=== PATIENT | female | born 1945 | race Caucasian/White ===

== ENCOUNTER → 2017-09-21 | Outpatient (CLI) | payer MEDICARE, OTHER | LOC: PLD 14:52 → LAB SHORT 14:52 | DX: D49.2 Neoplasm of unspecified behavior of bone, soft tissue, and skin (principal) | CPT/HCPCS: 88305 ==

== ENCOUNTER → 2017-11-11 | Outpatient (CLI) | payer MEDICARE, OTHER | END | disposition home or self-care (01) | LOC: LAB SHORT 08:47 → PLD 08:47 | DX: L57.0 Actinic keratosis (principal) | CPT/HCPCS: 88305 ==

== ENCOUNTER → 2019-01-12 | Outpatient (CLI) | payer MEDICARE, OTHER | END | disposition home or self-care (01) | LOC: LAB SHORT 11:12 → PLD 11:12 | DX: D48.5 Neoplasm of uncertain behavior of skin (principal) | CPT/HCPCS: 88305 ==

== ENCOUNTER → 2019-03-16 | Outpatient (CLI) | payer MEDICARE, OTHER | END | disposition home or self-care (01) | LOC: LAB 08:37 → LAB SHORT 08:37 | DX: N32.89 Other specified disorders of bladder (principal) | CPT/HCPCS: 88108 ==

== ENCOUNTER 2019-08-06 13:48 | Emergency (ER) | payer MEDICARE, OTHER ==
[~2019-08-06] VITALS: Ht 167.6 cm; Wt 60.3 kg
[2019-08-06] MEDS ORDERED: SIMVASTATIN (14:50)
[2019-08-06] MEDS ORDERED: FOLIC ACID (14:50)
[2019-08-06] MEDS ORDERED: METHOTREXATE (14:50)
[2019-08-06] MEDS ORDERED: Protonix40 MG PO (16:31)
[2019-08-06] MEDS ORDERED: Norco 10-325 T1 EACH PO (16:31)
[2019-08-06] MEDS ORDERED: Sucralfate1 GM PO (16:31)
== END 2019-08-06 17:20 | disposition home or self-care (01) ==
LOC: ER 13:48
DX: K29.80 Duodenitis without bleeding (principal); N20.0 Calculus of kidney; E03.9 Hypothyroidism, unspecified; Z79.899 Other long term (current) drug therapy; I31.3 Pericardial effusion (noninflammatory)
CPT/HCPCS: 74022; 74176; 76705; 80053; 83690; 84484; 85025; 85379; 96361; 96374; 99284-25; J1885; J7030

== ENCOUNTER 2019-09-28 09:27 | Day surgery (SDC) | payer MEDICARE, OTHER ==
[~2019-09-28] VITALS: Ht 167.6 cm; Wt 60.8 kg
[~2019-09-28 09:27] MED LIST: FOLIC ACID; METHOTREXATE; Norco 10-325 T1 EACH PO; Protonix40 MG PO; SIMVASTATIN; Sucralfate1 GM PO
== END 2019-09-28 11:18 | disposition home or self-care (01) ==
LOC: ORSCSDS 09:27
PROVIDERS: Internal Medicine Gastroenterology
PROC: 0DB68ZX Excision of Stomach, Via Natural or Artificial Opening Endoscopic, Diagnostic (ICD-10-PCS; principal; 2019-09-28 10:45)
PROC: 0DB58ZX Excision of Esophagus, Via Natural or Artificial Opening Endoscopic, Diagnostic (ICD-10-PCS; principal; 2019-09-28 10:45)
PROC: 0DB98ZX Excision of Duodenum, Via Natural or Artificial Opening Endoscopic, Diagnostic (ICD-10-PCS; principal; 2019-09-28 10:45)
DX: R10.13 Epigastric pain (principal); K29.70 Gastritis, unspecified, without bleeding; D72.89 Other specified disorders of white blood cells; K29.80 Duodenitis without bleeding; K57.30 Diverticulosis of large intestine without perforation or abscess without bleeding; K22.2 Esophageal obstruction; K44.9 Diaphragmatic hernia without obstruction or gangrene; Z79.899 Other long term (current) drug therapy
CPT/HCPCS: 88305; 88342; J2704; J7120

== ENCOUNTER → 2020-04-26 | Outpatient (CLI) | payer MEDICARE, OTHER | END | disposition home or self-care (01) | LOC: LAB EV 16:30 → LAB SHORT 16:30 | DX: R30.9 Painful micturition, unspecified (principal) | CPT/HCPCS: 87086 ==

== ENCOUNTER → 2020-07-16 | Outpatient (CLI) | payer MEDICARE, OTHER ==
[2020-07-16 16:27] LABS: BASOPHILS ABSOLUTE AUTO 0.05 K/mm3 (0.00-0.23); BASOPHILS PERCENT AUTO 0 % (0-2); EOSINOPHILS ABSOLUTE AUTO 0.06 K/mm3 (0.00-0.68); EOSINOPHILS PERCENT AUTO 1 % (0-6); Hematocrit 37.8 % (33.0-51.0); Hemoglobin 12.3 g/dL (11.5-16.0); IMMATURE GRAN ABSOLUTE AUTO 0.06 K/mm3 (0.00-0.10); IMMATURE GRAN PERCENT AUTO 1 % (0-1); LYMPHOCYTES PERCENT AUTO 10 % (21-46); MONOCYTES ABSOLUTE AUTO 0.69 K/mm3 (0.16-1.47); MONOCYTES PERCENT AUTO 6 % (4-13); Mean Corpuscular HGB 30.8 pg (26.0-34.0); Mean Corpuscular HGB Conc 32.5 g/dL (31.5-36.5); Mean Corpuscular Volume 95 fL (80-100); Mean Platelet Volume 10.6 fL (9.1-12.4); NEUTROPHILS ABSOLUTE AUTO 9.18 K/mm3 (1.96-9.15); NEUTROPHILS PERCENT AUTO 83 % (41-73); Platelet Count 303 K/mm3 (150-400); RDW Coefficient Variation 14.7 % (11.7-14.2); RDW Standard Deviation 50.1 fL (35.1-46.3); Red Blood Cell Count 3.99 M/mm3 (3.80-5.20); White Blood Cell Count 11.14 K/mm3 (4.00-11.30)
[2020-07-16 16:31] LABS: Bun/Creatinine Ratio 19.9 (12.0-20.0); Calcium, Blood 9.7 mg/dL (8.5-10.1); Creatinine, Blood 1.36 mg/dL (0.40-1.00); Potassium, Blood 4.6 mmol/L (3.5-5.5)
== END | disposition home or self-care (01) ==
LOC: LAB SHORT 16:20 → LAB EV 16:20
PROVIDERS: Family Medicine
DX: R42 Dizziness and giddiness (principal)
CPT/HCPCS: 80048; 84484; 85025

== ENCOUNTER → 2020-09-10 | Outpatient (CLI) | payer MEDICARE, OTHER ==
[~2020-09-10] MED LIST changes: +CEFP200 PO; +CEPH500 PO; +FAMO20 PO; +FLUT.05NI; +PARO10 PO
== END | disposition home or self-care (01) ==
LOC: LAB SHORT 11:56 → PLD 11:56
DX: D48.5 Neoplasm of uncertain behavior of skin (principal)
CPT/HCPCS: 88305

== ENCOUNTER → 2021-01-23 | Outpatient (CLI) | payer MEDICARE, OTHER | END | disposition home or self-care (01) | LOC: LAB SHORT 12:10 → LAB 12:10 | DX: N39.0 Urinary tract infection, site not specified (principal) | CPT/HCPCS: 87086 ==

== ENCOUNTER 2021-01-31 06:01 | Emergency (ER) | payer MEDICARE, OTHER ==
[~2021-01-31] VITALS: Ht 165.1 cm; Wt 59.0 kg
[~2021-01-31 06:01] MED LIST changes: -CEFP200 PO; -CEPH500 PO; -FAMO20 PO; -FLUT.05NI; -PARO10 PO
[2021-01-31] MEDS ORDERED: CEPH500 PO (07:21)
== END 2021-01-31 07:52 | disposition home or self-care (01) ==
LOC: ER 06:01
DX: S92.511A Displaced fracture of proximal phalanx of right lesser toe(s), initial encounter for closed fracture (principal); S40.011A Contusion of right shoulder, initial encounter; E03.9 Hypothyroidism, unspecified; X58.XXXA Exposure to other specified factors, initial encounter
CPT/HCPCS: 73030; 73060; 73630; 99283-25

== ENCOUNTER 2021-02-16 13:55 | Emergency (ER) | payer MEDICARE, OTHER ==
[~2021-02-16] VITALS: Ht 165.1 cm; Wt 54.4 kg
[~2021-02-16 13:55] MED LIST changes: +CEPH500 PO
[2021-02-16 14:27] LABS: Hemoglobin 9.9 g/dL (11.5-16.0); Mean Corpuscular HGB 28.1 pg (26.0-34.0); Mean Corpuscular HGB Conc 31.9 g/dL (31.5-36.5); Mean Corpuscular Volume 88 fL (80-100); Mean Platelet Volume 10.1 fL (9.1-12.4); Platelet Count 356 K/mm3 (150-400); RDW Coefficient Variation 15.6 % (11.7-14.2); Red Blood Cell Count 3.52 M/mm3 (3.80-5.20); White Blood Cell Count 17.65 K/mm3 (4.00-11.30)
[2021-02-16 14:43] LABS: Albumin, Blood 2.7 g/dL (3.4-5.0); Albumin/Globulin Ratio 0.5 (0.8-1.8); Bilirubin, Total 0.7 mg/dL (0.1-1.0); Bun/Creatinine Ratio 20.1 (12.0-20.0); Calcium, Blood 9.2 mg/dL (8.5-10.1); Creatinine, Blood 2.24 mg/dL (0.40-1.00); Globulin, Blood 5.1 g/dL (2.2-4.0); Potassium, Blood 4.1 mmol/L (3.5-5.5); Total Protein, Blood 7.8 g/dL (6.4-8.2)
[2021-02-16 14:51] LABS: BAND PERCENT MAN 17 % (0-8); BASOPHILS PERCENT MAN 0 % (0-2); EOSINOPHILS PERCENT MAN 0 % (0-6); LYMPHOCYTES ABSOLUTE MAN 0.52 K/mm3 (0.84-5.20); LYMPHOCYTES PERCENT MAN 3 % (21-46); MONOCYTES ABSOLUTE MAN 0.35 K/mm3 (0.16-1.47); MONOCYTES PERCENT MAN 2 % (4-13); NEUTROPHILS ABSOLUTE MAN 16.76 K/mm3 (1.96-9.15); SEG NEUTROPHILS PERCENT MAN 78 % (41-73); TOTAL CELLS COUNTED 100
[2021-02-16] MEDS ORDERED: FAMO20 PO (15:24)
[2021-02-16 16:13] LABS: Source, Urine Clean Catch
[2021-02-16 16:19] LABS: Appearance, Urine Cloudy (Clear); Bilirubin, Urine Neg (Neg); Blood, Urine 5+ (Neg); Color, Urine Amber (P-Yellow); Glucose Qualitative, Urine Neg (Neg); Ketones, Urine Neg (Neg); Leukocyte Esterase, Urine 3+ (Neg); Nitrite, Urine Pos (Neg); Protein, Urine 3+ (Neg); Urobilinogen, Urine NORM (Normal)
[2021-02-16 16:28] LABS: Red Blood Cells, Urine TNTC /hpf (0-2); White Blood Cells, Urine TNTC /hpf (0-5)
[2021-02-16 16:30] LABS: Bacteria Many /hpf; Squamous Epithelial Cells Few /hpf (Few)
[2021-02-16 20:30] LABS: SARS-Cov-2 (COVID-19) PCR, MMC NEGATIVE (NEGATIVE)
== END 2021-02-16 22:20 | disposition short-term general hospital (02) ==
LOC: ER 13:55
PROVIDERS: Emergency Medicine; Physician Assistant
DX: N13.2 Hydronephrosis with renal and ureteral calculous obstruction (principal); N28.1 Cyst of kidney, acquired; Z20.822 Contact with and (suspected) exposure to COVID-19
CPT/HCPCS: 36415; 51798; 71045; 74176; 76770; 80053; 81001; 83605; 85025; 87040; 87077; 87086; 87186; 96365; 96367; 99285-25; A9270; J0696; J2185; J2405; J7030; P9612; U0004

== ENCOUNTER 2021-02-21 17:35 | Emergency (ER) | payer MEDICARE, OTHER ==
[~2021-02-21] VITALS: Ht 165.1 cm; Wt 54.4 kg
[~2021-02-21 17:35] MED LIST changes: +FAMO20 PO
[2021-02-21 18:17] LABS: BASOPHILS ABSOLUTE AUTO 0.02 K/mm3 (0.00-0.23); BASOPHILS PERCENT AUTO 0 % (0-2); EOSINOPHILS ABSOLUTE AUTO 0.35 K/mm3 (0.00-0.68); EOSINOPHILS PERCENT AUTO 3 % (0-6); Hematocrit 24.1 % (33.0-51.0); Hemoglobin 7.9 g/dL (11.5-16.0); IMMATURE GRAN ABSOLUTE AUTO 0.19 K/mm3 (0.00-0.10); IMMATURE GRAN PERCENT AUTO 1 % (0-1); LYMPHOCYTES ABSOLUTE AUTO 1.36 K/mm3 (0.84-5.20); LYMPHOCYTES PERCENT AUTO 10 % (21-46); MONOCYTES ABSOLUTE AUTO 1.55 K/mm3 (0.16-1.47); MONOCYTES PERCENT AUTO 11 % (4-13); Mean Corpuscular HGB Conc 32.8 g/dL (31.5-36.5); Mean Corpuscular Volume 86 fL (80-100); Mean Platelet Volume 11.7 fL (9.1-12.4); NEUTROPHILS ABSOLUTE AUTO 10.23 K/mm3 (1.96-9.15); NEUTROPHILS PERCENT AUTO 75 % (41-73); Platelet Count 291 K/mm3 (150-400); RDW Coefficient Variation 16.7 % (11.7-14.2); RDW Standard Deviation 51.5 fL (35.1-46.3); Red Blood Cell Count 2.82 M/mm3 (3.80-5.20)
[2021-02-21 18:59] LABS: International Normalized Ratio 1.07; Prothrombin Time Results 11.5 Sec (9.7-11.5)
[2021-02-21 19:23] LABS: Troponin I <0.015 ng/mL (0.000-0.040)
[2021-02-21 19:31] LABS: Alanine Aminotransfer (ALT/SGP 17 U/L (12-78); Albumin, Blood 1.7 g/dL (3.4-5.0); Albumin/Globulin Ratio 0.4 (0.8-1.8); Alk Phos 83 U/L (50-136); Anion Gap 9 mmol/L (6-16); Aspartate Aminotrans (AST/SGOT 19 U/L (12-37); Bilirubin, Total 0.4 mg/dL (0.1-1.0); Blood Urea Nitrogen 25 mg/dL (8-24); Bun/Creatinine Ratio 11.9 (12.0-20.0); CO2, Blood 21 mmol/L (21-32); Calcium, Blood 8.4 mg/dL (8.5-10.1); Chloride, Blood 112 mmol/L (98-108); Globulin, Blood 4.1 g/dL (2.2-4.0); Glomerular Filtration Rate 24 (60-); Glucose, Blood 116 mg/dL (70-99); Potassium, Blood 3.9 mmol/L (3.5-5.5); Sodium, Blood 142 mmol/L (136-145); Total Protein, Blood 5.8 g/dL (6.4-8.2)
[2021-02-21 19:46] LABS: Source, Urine Catheter
[2021-02-21 19:56] LABS: Appearance, Urine Hazy (Clear); Bilirubin, Urine Neg (Neg); Blood, Urine 5+ (Neg); Color, Urine Yellow (P-Yellow); Glucose Qualitative, Urine Neg (Neg); Ketones, Urine Neg (Neg); Leukocyte Esterase, Urine 3+ (Neg); Nitrite, Urine Neg (Neg); Protein, Urine 3+ (Neg); Urobilinogen, Urine NORM (Normal)
[2021-02-21 20:10] LABS: Bacteria Few /hpf; Red Blood Cells, Urine TNTC /hpf (0-2); Squamous Epithelial Cells Not Seen /hpf (Few); White Blood Cells, Urine TNTC /hpf (0-5)
== END 2021-02-21 20:50 | disposition home or self-care (01) ==
LOC: ER 17:35
PROVIDERS: Physician Assistant
DX: R53.1 Weakness (principal); R30.0 Dysuria; E03.9 Hypothyroidism, unspecified; E78.00 Pure hypercholesterolemia, unspecified; Z79.899 Other long term (current) drug therapy
CPT/HCPCS: 36415; 80053; 81001; 84484; 85025; 85610; 87086; 93005; 93010; 99284-25; A9270; J7030

== ENCOUNTER 2021-03-05 09:54 | Emergency (ER) | payer MEDICARE, OTHER ==
[~2021-03-05] VITALS: Ht 165.1 cm; Wt 54.4 kg
[2021-03-05 10:25] LABS: BASOPHILS PERCENT AUTO 1 % (0-2); EOSINOPHILS ABSOLUTE AUTO 0.12 K/mm3 (0.00-0.68); EOSINOPHILS PERCENT AUTO 1 % (0-6); Hematocrit 30.2 % (33.0-51.0); Hemoglobin 9.2 g/dL (11.5-16.0); IMMATURE GRAN ABSOLUTE AUTO 0.32 K/mm3 (0.00-0.10); IMMATURE GRAN PERCENT AUTO 3 % (0-1); LYMPHOCYTES ABSOLUTE AUTO 2.42 K/mm3 (0.84-5.20); LYMPHOCYTES PERCENT AUTO 19 % (21-46); MONOCYTES ABSOLUTE AUTO 1.25 K/mm3 (0.16-1.47); MONOCYTES PERCENT AUTO 10 % (4-13); Mean Corpuscular HGB 27.5 pg (26.0-34.0); Mean Corpuscular HGB Conc 30.5 g/dL (31.5-36.5); Mean Corpuscular Volume 90 fL (80-100); Mean Platelet Volume 9.7 fL (9.1-12.4); NEUTROPHILS ABSOLUTE AUTO 8.46 K/mm3 (1.96-9.15); NEUTROPHILS PERCENT AUTO 67 % (41-73); Platelet Count 714 K/mm3 (150-400); RDW Coefficient Variation 16.4 % (11.7-14.2); RDW Standard Deviation 54.5 fL (35.1-46.3); Red Blood Cell Count 3.35 M/mm3 (3.80-5.20); White Blood Cell Count 12.67 K/mm3 (4.00-11.30)
[2021-03-05 10:42] LABS: Alanine Aminotransfer (ALT/SGP 37 U/L (12-78); Albumin, Blood 2.9 g/dL (3.4-5.0); Albumin/Globulin Ratio 0.5 (0.8-1.8); Alk Phos 99 U/L (50-136); Anion Gap 8 mmol/L (6-16); Aspartate Aminotrans (AST/SGOT 34 U/L (12-37); Bilirubin, Total 0.4 mg/dL (0.1-1.0); Blood Urea Nitrogen 47 mg/dL (8-24); Bun/Creatinine Ratio 22.3 (12.0-20.0); CO2, Blood 22 mmol/L (21-32); Calcium, Blood 9.9 mg/dL (8.5-10.1); Chloride, Blood 106 mmol/L (98-108); Creatinine, Blood 2.11 mg/dL (0.40-1.00); Globulin, Blood 6.4 g/dL (2.2-4.0); Glomerular Filtration Rate 24 (60-); Glucose, Blood 121 mg/dL (70-99); Potassium, Blood 4.6 mmol/L (3.5-5.5); Sodium, Blood 136 mmol/L (136-145); Total Protein, Blood 9.3 g/dL (6.4-8.2); Troponin I <0.015 ng/mL (0.000-0.040)
[2021-03-05 10:53] LABS: Source, Urine Clean Catch
[2021-03-05 11:28] LABS: Appearance, Urine Hazy (Clear); Bilirubin, Urine Neg (Neg); Blood, Urine 5+ (Neg); Color, Urine Yellow (P-Yellow); Glucose Qualitative, Urine Neg (Neg); Ketones, Urine Neg (Neg); Leukocyte Esterase, Urine 3+ (Neg); Nitrite, Urine Neg (Neg); Protein, Urine 3+ (Neg); Urobilinogen, Urine NORM (Normal)
[2021-03-05] MEDS ORDERED: PARO10 PO (12:45)
[2021-03-05] MEDS ORDERED: FLUT.05NI (12:46)
[2021-03-05 12:59] LABS: Bacteria Many /hpf; Red Blood Cells, Urine TNTC /hpf (0-2); Squamous Epithelial Cells Few /hpf (Few); White Blood Cells, Urine TNTC /hpf (0-5)
[2021-03-05] MEDS ORDERED: CEFP200 PO (13:15)
== END 2021-03-05 13:35 | disposition home or self-care (01) ==
LOC: ER 09:54
PROVIDERS: Emergency Medicine; Physician Assistant
DX: N39.0 Urinary tract infection, site not specified (principal); R94.4 Abnormal results of kidney function studies; Z79.899 Other long term (current) drug therapy
CPT/HCPCS: 36415; 71046; 80053; 81001; 82607; 82746; 83880; 84484; 85025; 87086; 93005; 93010; 99284-25

== ENCOUNTER → 2021-03-11 | Outpatient (CLI) | payer MEDICARE, OTHER ==
[~2021-03-11] MED LIST changes: +CEFP200 PO; +FLUT.05NI; +PARO10 PO
== END | disposition home or self-care (01) ==
LOC: LAB 15:21 → LAB SHORT 15:21
DX: D22.62 Melanocytic nevi of left upper limb, including shoulder (principal)
CPT/HCPCS: 88305

== ENCOUNTER → 2021-05-08 | Outpatient (CLI) | payer MEDICARE, OTHER ==
[2021-05-09 14:54] LABS: Adenovirus F 40/41 Not Detected (NOT DETECT); Astrovirus Not Detected (NOT DETECT); Campylobacter Sp Not Detected (NOT DETECT); Cryptosporidium Not Detected (NOT DETECT); Cyclospora Cayetanensis Not Detected (NOT DETECT); E. Coli O157 Not Detected (NOT DETECT); Entamoeba Histolytica Not Detected (NOT DETECT); Enteroaggregative E. coli-EAEC Not Detected (NOT DETECT); Enteropathogenic E. coli-EPEC Not Detected (NOT DETECT); Enterotoxigenic E. coli-ETEC Not Detected (NOT DETECT); Giardia Lamblia Not Detected (NOT DETECT); Norovirus GI/GII Not Detected (NOT DETECT); Plesiomonas Shigelloides Not Detected (NOT DETECT); Rotavirus A Not Detected (NOT DETECT); Salmonella Sp Not Detected (NOT DETECT); Sapovirus Not Detected (NOT DETECT); Shiga Toxin-prod E. coli-STEC Not Detected (NOT DETECT); Shigella/Enteroin E. coli-EIEC Not Detected (NOT DETECT); Vibrio Cholerae Not Detected (NOT DETECT); Vibrio Sp Not Detected (NOT DETECT); Yersinia Enterocolitica Not Detected (NOT DETECT)
== END | disposition home or self-care (01) ==
LOC: LAB SHORT 19:00 → LAB 19:00
PROVIDERS: Internal Medicine Gastroenterology
DX: R19.7 Diarrhea, unspecified (principal)
CPT/HCPCS: 0097U; 87324

== ENCOUNTER → 2021-05-09 | Outpatient (CLI) | payer MEDICARE, OTHER | END | disposition home or self-care (01) | LOC: LAB 01:30 → LAB SHORT 01:30 | DX: R19.7 Diarrhea, unspecified (principal) | CPT/HCPCS: 83993 ==

== ENCOUNTER 2021-09-17 09:48 | Day surgery (SDC) | payer MEDICARE, OTHER ==
[~2021-09-17] VITALS: Ht 165.1 cm; Wt 50.1 kg
[~2021-09-17 09:48] MED LIST changes: +FOLI1 PO; +METTREX2.5 PO
--- NOTE | 2021-09-17 10:34 | NUR ---
PT AMBULATES TO [facility] GAIT. History, Chart, Medications and Allergies reviewed before start of procedure. Lungs clear T/O to Auscultation. Patient states colon prep results clear. Patient States Post-Procedure ride home has been arranged.
--- NOTE | 2021-09-17 12:06 | NUR ---
09/17/21 1206 [address] [place] History, Chart, Medications and Allergies reviewed before start of procedure. Patient confirms NPO status and agrees with scheduled surgery. 3-LEAD EKG REVIEWED WITH PHYSICIAN PRIOR TO START OF PROCEDURE. MONITOR INTACT WITH CONTINUOUS PULSE OXIMETRY AND INTERMITTENT BP. PATIENT DETERMINED TO BE ASA APPROPRIATE FOR PROPOFOL SEDATION PRIOR TO START OF PROCEDURE BY DR. EDUARDO. O2 VIA POM.
--- NOTE | 2021-09-17 13:08 | NUR ---
PT ALERT AND ORIENTED, ABLE TO REPOSITION SELF IN BED. SPEAKING WITH DOCTOR AT BEDSIDE ABOUT HOW PROCEDURE WENT.
--- NOTE | 2021-09-17 13:12 | NUR ---
PT TOLERATING PO FLUIDS, SITTING UP IN BED AND JOKING WITH STAFF AT BEDSIDE.
--- NOTE | 2021-09-17 13:30 | NUR ---
Patient up to Ambulate independently. Gait steady. Discharge instructions reviewed with patient. Patient verbalizes understanding. Copy given to patient to take home. Patient States Post-Procedure ride home has been arranged. Discharged via wheelchair to private car for ride home. ALL BELONGINGS RETURNED TO PATIENT.
== END 2021-09-17 22:38 | disposition home or self-care (01) ==
LOC: ORSCMMR 09:48 → ORSCSDS 11:15 → ORD 11:15 → ORSCMMR 22:38
PROVIDERS: Student in an Organized Health Care Education/Training Program
PROC: 0DBE8ZX Excision of Large Intestine, Via Natural or Artificial Opening Endoscopic, Diagnostic (ICD-10-PCS; principal; 2021-09-17 11:15)
PROC: 0DB48ZX Excision of Esophagogastric Junction, Via Natural or Artificial Opening Endoscopic, Diagnostic (ICD-10-PCS; principal; 2021-09-17 11:15)
PROC: 0DB78ZX Excision of Stomach, Pylorus, Via Natural or Artificial Opening Endoscopic, Diagnostic (ICD-10-PCS; principal; 2021-09-17 11:15)
DX: R19.7 Diarrhea, unspecified (principal); D50.9 Iron deficiency anemia, unspecified; K52.9 Noninfective gastroenteritis and colitis, unspecified; R63.4 Abnormal weight loss; N18.9 Chronic kidney disease, unspecified; K44.9 Diaphragmatic hernia without obstruction or gangrene; K29.70 Gastritis, unspecified, without bleeding; K57.30 Diverticulosis of large intestine without perforation or abscess without bleeding; K64.8 Other hemorrhoids; E78.5 Hyperlipidemia, unspecified; Z79.899 Other long term (current) drug therapy
CPT/HCPCS: 88305; 88341; 88342; J2704; J7120

== ENCOUNTER 2021-09-21 05:55 | Day surgery (SDC) | payer MEDICARE, OTHER | END 2021-09-21 09:29 | disposition home or self-care (01) | LOC: ATC 05:55 | DX: N18.32 Chronic kidney disease, stage 3b (principal); D63.1 Anemia in chronic kidney disease | CPT/HCPCS: J2916 ==

== ENCOUNTER 2021-09-28 04:03 | Day surgery (SDC) | payer MEDICARE, OTHER ==
[2021-09-28] MEDS ORDERED: LOSARTAN POTASS25 M2 PO (08:32)
== END 2021-09-28 09:45 | disposition home or self-care (01) ==
LOC: ATC 04:03
DX: N18.9 Chronic kidney disease, unspecified (principal); D63.1 Anemia in chronic kidney disease
CPT/HCPCS: J2916

== ENCOUNTER 2021-10-05 07:55 | Day surgery (SDC) | payer MEDICARE, OTHER ==
[~2021-10-05 07:55] MED LIST changes: +LOSARTAN POTASS25 M2 PO
== END 2021-10-05 09:38 | disposition home or self-care (01) ==
LOC: ATC 07:55
DX: N18.9 Chronic kidney disease, unspecified (principal); D63.1 Anemia in chronic kidney disease
CPT/HCPCS: J2916

== ENCOUNTER 2021-10-12 03:53 | Day surgery (SDC) | payer MEDICARE, OTHER | END 2021-10-12 09:25 | disposition home or self-care (01) | LOC: ATC 03:53 | DX: N18.9 Chronic kidney disease, unspecified (principal); D63.1 Anemia in chronic kidney disease | CPT/HCPCS: J2916 ==

== ENCOUNTER → 2022-03-02 | Outpatient (CLI) | payer MEDICARE, OTHER ==
[2022-03-02 10:27] LABS: BASOPHILS ABSOLUTE AUTO 0.01 K/mm3 (0.00-0.23); BASOPHILS PERCENT AUTO 0 % (0-2); EOSINOPHILS ABSOLUTE AUTO 0.07 K/mm3 (0.00-0.68); EOSINOPHILS PERCENT AUTO 2 % (0-6); Hemoglobin 10.2 g/dL (11.5-16.0); IMMATURE GRAN ABSOLUTE AUTO 0.02 K/mm3 (0.00-0.10); IMMATURE GRAN PERCENT AUTO 1 % (0-1); LYMPHOCYTES ABSOLUTE AUTO 1.25 K/mm3 (0.84-5.20); LYMPHOCYTES PERCENT AUTO 33 % (21-46); MONOCYTES PERCENT AUTO 13 % (4-13); Mean Corpuscular HGB 32.5 pg (26.0-34.0); Mean Corpuscular HGB Conc 31.9 g/dL (31.5-36.5); Mean Corpuscular Volume 102 fL (80-100); NEUTROPHILS ABSOLUTE AUTO 1.96 K/mm3 (1.96-9.15); NEUTROPHILS PERCENT AUTO 52 % (41-73); Platelet Count 186 K/mm3 (150-400); RDW Standard Deviation 58.7 fL (35.1-46.3); Red Blood Cell Count 3.14 M/mm3 (3.80-5.20); White Blood Cell Count 3.81 K/mm3 (4.00-11.30)
[2022-03-02 10:40] LABS: Albumin, Blood 3.4 g/dL (3.4-5.0); Albumin/Globulin Ratio 0.9 (0.8-1.8); Bilirubin, Total 0.2 mg/dL (0.1-1.0); Bun/Creatinine Ratio 15.1 (12.0-20.0); Calcium, Blood 8.7 mg/dL (8.5-10.1); Creatinine, Blood 2.18 mg/dL (0.40-1.00); Globulin, Blood 3.9 g/dL (2.2-4.0); Potassium, Blood 4.5 mmol/L (3.5-5.5); Total Protein, Blood 7.3 g/dL (6.4-8.2)
[2022-03-02 13:30] LABS: Bacteria Few /hpf; Squamous Epithelial Cells Rare /hpf (Few); White Blood Cells, Urine 25-50 /hpf (0-5)
[2022-03-02 13:31] LABS: Transitional Epithelial Cells Few /hpf (0-Rare); Yeast/Fungi Urine Mod /hpf
== END ==
LOC: LAB SHORT 10:24
PROVIDERS: General Practice
DX: N39.0 Urinary tract infection, site not specified (principal); D84.9 Immunodeficiency, unspecified
CPT/HCPCS: 80053; 81015; 85025; 87086

== ENCOUNTER → 2022-03-04 | Outpatient (CLI) | payer MEDICARE, OTHER | END | disposition home or self-care (01) | LOC: LAB 13:01 → LAB SHORT 13:01 | DX: R35.81 Nocturnal polyuria (principal) | CPT/HCPCS: 87086 ==

== ENCOUNTER 2022-03-07 08:55 | Emergency (ER) | payer MEDICARE, OTHER ==
[~2022-03-07] VITALS: Ht 165.1 cm; Wt 53.5 kg
== END 2022-03-07 11:00 | disposition home or self-care (01) ==
LOC: ER 08:55
DX: R07.89 Other chest pain (principal); N18.9 Chronic kidney disease, unspecified; Z79.899 Other long term (current) drug therapy
CPT/HCPCS: 71101

== ENCOUNTER → 2023-08-10 | Outpatient (CLI) | payer MEDICARE, OTHER ==
[2023-08-10 17:25] LABS: Source, Urine Clean Catch
[2023-08-10 17:38] LABS: Appearance, Urine Cloudy (Clear); Bilirubin, Urine Neg (Neg); Blood, Urine 5+ (Neg); Color, Urine Yellow (P-Yellow); Glucose Qualitative, Urine Neg (Neg); Ketones, Urine Neg (Neg); Leukocyte Esterase, Urine 3+ (Neg); Nitrite, Urine Neg (Neg); Protein, Urine 3+ (Neg); Urobilinogen, Urine NORM (Normal)
[2023-08-10 18:11] LABS: Bacteria Many /hpf; Red Blood Cells, Urine 25-50 /hpf (0-2); Squamous Epithelial Cells Few /hpf (Few); White Blood Cells, Urine TNTC /hpf (0-5)
== END ==
LOC: LAB 16:22 → LAB SHORT 16:22
PROVIDERS: Hospitalist
DX: N18.4 Chronic kidney disease, stage 4 (severe) (principal)
CPT/HCPCS: 81001; 87077; 87086; 87186

== ENCOUNTER 2024-04-04 21:11 | Inpatient (IN) | payer OTHER, MEDICARE ==
[~2024-04-04] VITALS: Ht 165.1 cm; Wt 59.3 kg
[~2024-04-04 21:11] MED LIST changes: +ONDA4ODT MM
[2024-04-04 22:17] LABS: Hematocrit 33.1 % (33.0-51.0); Hemoglobin 10.5 g/dL (11.5-16.0); Mean Corpuscular HGB 27.8 pg (26.0-34.0); Mean Corpuscular HGB Conc 31.7 g/dL (31.5-36.5); Mean Corpuscular Volume 88 fL (80-100); Platelet Count 355 K/mm3 (150-400); RDW Coefficient Variation 17.4 % (11.7-14.2); RDW Standard Deviation 56.3 fL (35.1-46.3); Red Blood Cell Count 3.78 M/mm3 (3.80-5.20); White Blood Cell Count 13.64 K/mm3 (4.00-11.30)
[2024-04-04 22:39] LABS: Albumin, Blood 2.8 g/dL (3.4-5.0); Albumin/Globulin Ratio 0.6 (0.8-1.8); Bilirubin, Total 0.5 mg/dL (0.1-1.0); Calcium, Blood 8.9 mg/dL (8.5-10.1); Creatinine, Blood 2.38 mg/dL (0.40-1.00); Globulin, Blood 4.6 g/dL (2.2-4.0); Potassium, Blood 4.5 mmol/L (3.5-5.5); Total Protein, Blood 7.4 g/dL (6.4-8.2)
[2024-04-04 22:46] LABS: BAND PERCENT MAN 18 % (0-8); BASOPHILS PERCENT MAN 0 % (0-2); EOSINOPHILS PERCENT MAN 0 % (0-6); LYMPHOCYTES ABSOLUTE MAN 1.77 K/mm3 (0.84-5.20); LYMPHOCYTES PERCENT MAN 13 % (21-46); MONOCYTES ABSOLUTE MAN 0.95 K/mm3 (0.16-1.47); MONOCYTES PERCENT MAN 7 % (4-13); NEUTROPHILS ABSOLUTE MAN 10.91 K/mm3 (1.96-9.15); SEG NEUTROPHILS PERCENT MAN 62 % (41-73); TOTAL CELLS COUNTED 100
[2024-04-04 23:56] LABS: Source, Urine Clean Catch
[2024-04-04 23:59] LABS: Bilirubin, Urine Neg (Neg); Blood, Urine 5+ (Neg); Glucose Qualitative, Urine Neg (Neg); Ketones, Urine Neg (Neg); Leukocyte Esterase, Urine 3+ (Neg); Nitrite, Urine Neg (Neg); Protein, Urine 3+ (Neg); Urobilinogen, Urine NORM (Normal)
[2024-04-05 00:10] LABS: Appearance, Urine Cloudy (Clear); Color, Urine Yellow (P-Yellow)
[2024-04-05 00:11] LABS: Bacteria Many /hpf; Red Blood Cells, Urine TNTC /hpf (0-2); Squamous Epithelial Cells Not Seen /hpf (Few); White Blood Cells, Urine TNTC /hpf (0-5)
[2024-04-05] MEDS ORDERED: TraMADol HCl 50 MG Tab PO ONE (02:10)
[2024-04-05] MEDS ORDERED: CefTRIAXone Sodium 1,000 MG in NS 50 ML IV ONE (02:10)
[2024-04-05] MEDS ORDERED: NS 1,000 ML IV SCH ×3 (02:10→17:35)
[2024-04-05] MEDS ORDERED: Dexamethasone Sod Phos 10 MG/ML 1ML VIAL PO ONE (02:15)
[2024-04-05] MEDS ORDERED: Ipratropium/Albuterol SulF 2.5-0.5MG/3 ML Amp INH ONE (02:15)
[2024-04-05] MEDS ORDERED: Acetaminophen 325 MG TABLET PO PRN (03:05)
[2024-04-05] MEDS ORDERED: Ipratropium/Albuterol SulF 2.5-0.5MG/3 ML Amp INH PRN (03:05)
[2024-04-05] MEDS ORDERED: Ondansetron HCl 2 MG / ML 2ML Vial IV PRN (03:05)
[2024-04-05] MEDS ORDERED: Remdesivir (EUA) 200 MG in NS 250 ML IV ONE (03:15)
[2024-04-05 06:15] LABS: SARS-Cov-2 (COVID-19) PCR, MMC POSITIVE (NEGATIVE)
[2024-04-05 06:16] LABS: Albumin, Blood 2.4 g/dL (3.4-5.0); Albumin/Globulin Ratio 0.6 (0.8-1.8); Bilirubin, Total 0.3 mg/dL (0.1-1.0); Bun/Creatinine Ratio 16.9 (12.0-20.0); Calcium, Blood 8.3 mg/dL (8.5-10.1); Creatinine, Blood 2.07 mg/dL (0.40-1.00); Globulin, Blood 4.3 g/dL (2.2-4.0); Potassium, Blood 3.9 mmol/L (3.5-5.5); Total Protein, Blood 6.7 g/dL (6.4-8.2)
[2024-04-05 06:21] LABS: Percent Saturation 5.9 % (15.0-50.0); Thyroid Stimulating Hormone 2.04 uIU/mL (0.360-4.800)
[2024-04-05] MEDS ORDERED: Lidocaine 2% Viscous Soln 20 ML,Nystatin 100,000 Unit/ml Susp 20 ML,Mag Hydrox/Al Hydro... MT PRN (09:00)
[2024-04-05] MEDS ORDERED: Lactobacil 2-S.Thermo-Bifido 1 1 Cap PO SCH (09:00)
[2024-04-05] MEDS ORDERED: Heparin Sodium,Porcine 5,000 UNIT/0.5 ML SDV SC SCH (09:00)
[2024-04-05 15:24] VITALS: BP 157/105
[2024-04-05] MEDS ORDERED: HYDROcodone 5-APAP 325 TAB PO PRN (16:40)
[2024-04-05] MEDS ORDERED: HYDROmorphone HCl/Pf 1MG SYR IV PRN (16:40)
--- NOTE | 2024-04-05 18:41 | NUR ---
ADMISSION AND SHIFT SUMMARY PATIENT ALERT AND INTERACTIVE. PATIENT ABLE TO AMBULATE FROM OATES TO BED WITH STAND BY ASSIST. PATIENT STATES THAT SHE IS WEAK FROM BEING SICK AND HAVING THIS SORE THROAT. PATIENT RECENTLY RETURNED FROM AN [facility]. PATIENT REPORTS BEING INCONTINTENT WITH NO CONTROL SINCE BLADDER CANCER ISSUES. PUREWICK CURRENTLY IN PLACE. PATIENT CONTINUES TO BE ON ROOM AIR WITH MOIST PRODUCTIVE COUGH OF CLEAR SECRETIONS. EDUCATION PROVIDED ON THE IMPORTANCE OF COUGHING AND DEEP BREATHING. PATIENT ALSO EMOTIONAL ABOUT BEING SICK. PATIENT MAKING REFERENCES TO HER THAT HAD A FEW YEARS AGO AND BECAME TEARFUL. LARGE BOLBUS BLISTER LIKE LEISON NOTED ON UPPER PALLET. PATIENT STATES THAT SHE HAS AREAS AROUND LIPS AND GUMS SLOUGHING TOO. PATIENT STATES PAIN IS 9/10. PATIENT ABLE TO SWALLOW PILLS WITH ROOM TEMPERATURE LIQUIDS. COLD OR HOT LIQUIDS MAKES PAIN WORSE. PATIENT MEDICATED WITH PAIN PER MAR WITH MINIMAL RELIEF.
[2024-04-05 19:55] VITALS: BP 118/59
[2024-04-06] MEDS ORDERED: CefTRIAXone Sodium 1,000 MG in NS 100 ML IV SCH (03:00)
[2024-04-06 03:22] VITALS: BP 151/78
[2024-04-06 04:57] LABS: BASOPHILS ABSOLUTE AUTO 0.03 K/mm3 (0.00-0.23); BASOPHILS PERCENT AUTO 0 % (0-2); EOSINOPHILS PERCENT AUTO 0 % (0-6); Hematocrit 27.7 % (33.0-51.0); Hemoglobin 8.6 g/dL (11.5-16.0); IMMATURE GRAN ABSOLUTE AUTO 0.14 K/mm3 (0.00-0.10); IMMATURE GRAN PERCENT AUTO 1 % (0-1); LYMPHOCYTES ABSOLUTE AUTO 0.88 K/mm3 (0.84-5.20); LYMPHOCYTES PERCENT AUTO 6 % (21-46); MONOCYTES ABSOLUTE AUTO 0.96 K/mm3 (0.16-1.47); MONOCYTES PERCENT AUTO 6 % (4-13); Mean Corpuscular Volume 87 fL (80-100); Mean Platelet Volume 10.3 fL (9.1-12.4); NEUTROPHILS ABSOLUTE AUTO 13.64 K/mm3 (1.96-9.15); NEUTROPHILS PERCENT AUTO 87 % (41-73); Platelet Count 314 K/mm3 (150-400); RDW Coefficient Variation 17.5 % (11.7-14.2); RDW Standard Deviation 56.2 fL (35.1-46.3); Red Blood Cell Count 3.18 M/mm3 (3.80-5.20); White Blood Cell Count 15.65 K/mm3 (4.00-11.30)
[2024-04-06 05:53] LABS: Albumin, Blood 2.1 g/dL (3.4-5.0); Albumin/Globulin Ratio 0.5 (0.8-1.8); Bilirubin, Total 0.3 mg/dL (0.1-1.0); Bun/Creatinine Ratio 22.8 (12.0-20.0); Calcium, Blood 8.5 mg/dL (8.5-10.1); Creatinine, Blood 1.58 mg/dL (0.40-1.00); Potassium, Blood 4.7 mmol/L (3.5-5.5); Total Protein, Blood 6.1 g/dL (6.4-8.2)
--- NOTE | 2024-04-06 06:45 | NUR ---
SHIFT SUMMARY PT IS A&OX4, PLEASANT AND APPRECIATIVE OF CARES. VSS ON RA. PT CRYING IN PAIN, 10/10 IN HER MOUTH AND THROAT. MEDICATED WITH 1MG IV DILAUDID, D/T PT SAYING SHE WOULD NOT BE ABLE TO SWALLOW A PILL. PT RESTING IN BETWEEN CARES. NOT ABLE TO TOLERATE FOOD. LIMITS ORAL INTAKE D/T PAIN. WICKING SYSTEM IN PLACE DRAINING CLOUDY YELLOW URINE. NO BM THIS SHIFT. BED IN LOWEST POSITION, CALL LIGHT WITHIN REACH. AEROSOL PRECAUTIONS MAINTAINED FOR COVID.
[2024-04-06 07:39] VITALS: BP 143/68
[2024-04-06] MEDS ORDERED: Azithromycin 500 MG in NS 250 ML IV SCH (09:57)
[2024-04-06] MEDS ORDERED: MethylPREDNISolone Sod Succ 125 MG Vial IV SCH (11:10)
[2024-04-06] MEDS ORDERED: Sod Ferric Gluc Complx/Sucrose 125 MG in NS 100 ML IV SCH (11:15)
[2024-04-06] MEDS ORDERED: Remdesivir (EUA) 100 MG in NS 250 ML IV SCH (12:00)
[2024-04-06 14:29] LABS: BASOPHILS ABSOLUTE AUTO 0.04 K/mm3 (0.00-0.23); BASOPHILS PERCENT AUTO 0 % (0-2); EOSINOPHILS PERCENT AUTO 0 % (0-6); Hematocrit 29.1 % (33.0-51.0); Hemoglobin 9.2 g/dL (11.5-16.0); IMMATURE GRAN PERCENT AUTO 1 % (0-1); LYMPHOCYTES PERCENT AUTO 6 % (21-46); MONOCYTES ABSOLUTE AUTO 0.91 K/mm3 (0.16-1.47); MONOCYTES PERCENT AUTO 5 % (4-13); Mean Corpuscular HGB 27.5 pg (26.0-34.0); Mean Corpuscular HGB Conc 31.6 g/dL (31.5-36.5); Mean Corpuscular Volume 87 fL (80-100); Mean Platelet Volume 10.2 fL (9.1-12.4); NEUTROPHILS PERCENT AUTO 88 % (41-73); Platelet Count 352 K/mm3 (150-400); RDW Coefficient Variation 17.6 % (11.7-14.2); RDW Standard Deviation 56.4 fL (35.1-46.3); Red Blood Cell Count 3.35 M/mm3 (3.80-5.20); White Blood Cell Count 19.45 K/mm3 (4.00-11.30)
[2024-04-06 14:53] LABS: Albumin, Blood 2.3 g/dL (3.4-5.0); Anion Gap 7 mmol/L (3-11); Blood Urea Nitrogen 36 mg/dL (8-24); Bun/Creatinine Ratio 25.9 (12.0-20.0); CO2, Blood 22 mmol/L (21-32); Calcium, Blood 8.4 mg/dL (8.5-10.1); Chloride, Blood 112 mmol/L (98-108); Creatinine, Blood 1.39 mg/dL (0.40-1.00); Glomerular Filtration Rate 38 (60-); Glucose, Blood 134 mg/dL (70-99); Phosphorus, Blood 2.2 mg/dL (2.5-4.9); Potassium, Blood 4.5 mmol/L (3.5-5.5); Sodium, Blood 136 mmol/L (136-145)
[2024-04-06 16:08] VITALS: BP 142/63
[2024-04-06] MEDS ORDERED: Ferrous Sulfate 325 MG Tab PO SCH (17:00)
--- NOTE | 2024-04-06 18:50 | NUR ---
SHIFT SUMMARY PATIENT ALERT AND INTERACTIVE. PATIENT CONTINUES TO BE TEARFUL AT TIMES AND EMOTIONAL. PATIENT CONTINUES TO HAVE THROAT PAIN. PATIENT MEDICATED PER MAR NEEDED FOR PAIN. PATIENT HAVING BETTER PAIN CONTROL WITH 2 NORCO WHEN MEDICATED. PATIENT UP TO BR WITH MINIMAL ASSIST FOR SPONGE BATH. CONTINUE TO USE PUREWICK FOR BLADDER LEAKAGE. FELICE AT BEDSIDE MOST OF THE DAY.
[2024-04-06 20:05] VITALS: BP 178/67
[2024-04-06] MEDS ORDERED: Famotidine 10 MG/ML 2ML Vial IV SCH (21:00)
--- NOTE | 2024-04-07 04:39 | NUR ---
Pt resting quietly intermittently. pt reports seeing "steam" rising across the room. No evidence noted or observed. Will followup. Pt tearful at times. No distress noted.
[2024-04-07 05:01] LABS: BASOPHILS ABSOLUTE AUTO 0.02 K/mm3 (0.00-0.23); BASOPHILS PERCENT AUTO 0 % (0-2); EOSINOPHILS PERCENT AUTO 0 % (0-6); Hematocrit 30.7 % (33.0-51.0); Hemoglobin 9.6 g/dL (11.5-16.0); IMMATURE GRAN ABSOLUTE AUTO 0.34 K/mm3 (0.00-0.10); IMMATURE GRAN PERCENT AUTO 3 % (0-1); LYMPHOCYTES ABSOLUTE AUTO 0.86 K/mm3 (0.84-5.20); LYMPHOCYTES PERCENT AUTO 9 % (21-46); MONOCYTES ABSOLUTE AUTO 0.49 K/mm3 (0.16-1.47); MONOCYTES PERCENT AUTO 5 % (4-13); Mean Corpuscular HGB 27.3 pg (26.0-34.0); Mean Corpuscular HGB Conc 31.3 g/dL (31.5-36.5); Mean Corpuscular Volume 87 fL (80-100); Mean Platelet Volume 10.2 fL (9.1-12.4); NEUTROPHILS ABSOLUTE AUTO 8.42 K/mm3 (1.96-9.15); NEUTROPHILS PERCENT AUTO 83 % (41-73); Platelet Count 358 K/mm3 (150-400); RDW Coefficient Variation 17.8 % (11.7-14.2); RDW Standard Deviation 57.3 fL (35.1-46.3); Red Blood Cell Count 3.52 M/mm3 (3.80-5.20); White Blood Cell Count 10.13 K/mm3 (4.00-11.30)
[2024-04-07 05:24] LABS: Albumin, Blood 2.1 g/dL (3.4-5.0); Albumin/Globulin Ratio 0.5 (0.8-1.8); Bilirubin, Total 0.2 mg/dL (0.1-1.0); Bun/Creatinine Ratio 22.7 (12.0-20.0); Calcium, Blood 7.9 mg/dL (8.5-10.1); Creatinine, Blood 1.41 mg/dL (0.40-1.00); Globulin, Blood 4.3 g/dL (2.2-4.0); Potassium, Blood 4.8 mmol/L (3.5-5.5); Total Protein, Blood 6.4 g/dL (6.4-8.2)
[2024-04-07 05:36] VITALS: BP 142/81
[2024-04-07 07:43] VITALS: BP 151/81
[2024-04-07] MEDS ORDERED: Sodium Bicarb 8.4% Inj 75 MEQ in Sodium Chloride 0.45% 1,000 ML IV SCH (12:15)
[2024-04-07 14:08] VITALS: BP 139/67
--- NOTE | 2024-04-07 19:20 | NUR ---
SHIFT SUMMARY: PT IS A/O X 4, STANDBY/IND IN ROOM. PLEASANT AND COOPERATIVE BUT CAN BE TEARFUL AT TIMES. PT REPORTED CONTINUOUS BIOX KEPT HER UP ALL NIGHT. PER DR. CROUCH OKAY TO DC. UNABLE TO DC ORDER. PT IS NOT WEARING CONTINUOUS BIOX. PT IS NOW ON TELE WITH NSR. PT CONTINUES TO HAVE PAIN TO MOUTH FROM SORES. NORCO 2 TABS EFFECTIVE IN TREATING PAIN. PT UNABLE TO EAT MEALS BUT SHE WAS ABLE TO DRINK A STRAWBERRY MILKSHAKE. REFUSED ENSURES. PT HAD 2 BOUTS OF NAUSEA. ZOFRAN EFFECTIVE IN TREATING NAUSEA. URINE WAS CLOUDY TINGED PINK WITH BLOOD TODAY. GOOD URINE OUTPUT. PT ON SODIUM BICARB 50 ML PER HOUR.
[2024-04-07 19:33] VITALS: BP 132/61
[2024-04-08 04:37] VITALS: BP 147/66
[2024-04-08 05:06] LABS: Hematocrit 30.2 % (33.0-51.0); Hemoglobin 9.5 g/dL (11.5-16.0); Mean Corpuscular HGB 26.9 pg (26.0-34.0); Mean Corpuscular HGB Conc 31.5 g/dL (31.5-36.5); Mean Corpuscular Volume 86 fL (80-100); Mean Platelet Volume 10.3 fL (9.1-12.4); NRBC ABSOLUTE 0.02 K/mm3 (0.00-0.02); NRBC Auto 0.2 /100 WBC (0.0-0.2); Platelet Count 332 K/mm3 (150-400); RDW Coefficient Variation 17.8 % (11.7-14.2); RDW Standard Deviation 55.8 fL (35.1-46.3); Red Blood Cell Count 3.53 M/mm3 (3.80-5.20); White Blood Cell Count 10.63 K/mm3 (4.00-11.30)
[2024-04-08 05:27] LABS: BAND PERCENT MAN 2 % (0-8); BASOPHILS PERCENT MAN 0 % (0-2); EOSINOPHILS PERCENT MAN 0 % (0-6); LYMPHOCYTES ABSOLUTE MAN 0.85 K/mm3 (0.84-5.20); LYMPHOCYTES PERCENT MAN 8 % (21-46); METAMYELOCYTE PERCENT MAN 1 % (0-0); MONOCYTES ABSOLUTE MAN 0.85 K/mm3 (0.16-1.47); MONOCYTES PERCENT MAN 8 % (4-13); MYELOCYTE ABSOLUTE MAN 0.31 K/mm3 (0.00-0.00); MYELOCYTE PERCENT MAN 3 % (0-0); SEG NEUTROPHILS PERCENT MAN 78 % (41-73); TOTAL CELLS COUNTED 100
[2024-04-08 05:32] LABS: Alanine Aminotransfer (ALT/SGP 12 U/L (12-78); Albumin, Blood 2.1 g/dL (3.4-5.0); Albumin/Globulin Ratio 0.5 (0.8-1.8); Alk Phos 78 U/L (50-136); Anion Gap 11 mmol/L (3-11); Aspartate Aminotrans (AST/SGOT 16 U/L (12-37); Bilirubin, Total 0.2 mg/dL (0.1-1.0); Blood Urea Nitrogen 33 mg/dL (8-24); Bun/Creatinine Ratio 24.1 (12.0-20.0); CO2, Blood 19 mmol/L (21-32); Calcium, Blood 7.8 mg/dL (8.5-10.1); Chloride, Blood 114 mmol/L (98-108); Creatinine, Blood 1.37 mg/dL (0.40-1.00); Globulin, Blood 3.9 g/dL (2.2-4.0); Glomerular Filtration Rate 39 (60-); Glucose, Blood 128 mg/dL (70-99); Phosphorus, Blood 2.9 mg/dL (2.5-4.9); Potassium, Blood 4.3 mmol/L (3.5-5.5); Sodium, Blood 140 mmol/L (136-145)
[2024-04-08 07:38] VITALS: BP 153/83
[2024-04-08] MEDS ORDERED: HYDROcodone 5-APAP 325 TAB PO PRN ×2 (10:55→20:55)
[2024-04-08] MEDS ORDERED: HYDROcodone 5-APAP 325 TAB PO SCH (11:00)
[2024-04-08] MEDS ORDERED: Ondansetron 4 MG SoluTab MM SCH (11:00)
[2024-04-08] MEDS ORDERED: NS 250 ML IV PRN (12:55)
[2024-04-08 15:42] VITALS: BP 118/69
--- NOTE | 2024-04-08 19:08 | NUR ---
SHIFT SUMMARY: PT IS A/O X 4, IND IN ROOM PLEASANT AND COOPERATIVE. PT IS ON RA. CONTINUE TO C/O PAIN DUE TO SORES IN MOUTH. SCHEDULED NORCO HAS BEEN EFFECTIVE AND PT HAS HAD NO NEED FOR PRN NORCO. PT DID REPORT SHE HAD BM WHICH WERE LIKE CROW. SHE REFUSED PRUNE JUICE BUT IS NOT OPPOSED TO USING STOOL SOFTENERS IF NEEDED. SODIUM BICARB CONTINUES TO RUN AT 50 ML/HR.
[2024-04-09 03:35] VITALS: BP 137/71
--- NOTE | 2024-04-09 06:19 | NUR ---
SHIFT SUMMARY ASSUMED CARE OF PT AT 1900. PT IS A/OX4. HEART SOUNDS REGUALR. LUNG SOUNDS HAVE CRACKLES ON THE BASES. PT WAS RA ALL NIGHT. HAD COUGHING FITS. PT WAS INCONTIENT, USED PURWICK. PT IS A SBA TO BATHRROM FOR CORD ASSIST. PT C/O SORE MOUTH, MEDICATED PER EMAR. PT SLEPT T/O THE NOC. PT HOPES TO GO HOME AFTER LAST DOSE OF REMDESVIR. PT WONDERING ABOUT CULTURE SWAB ON THEIR MOUTH.
[2024-04-09 07:19] VITALS: BP 153/65
[2024-04-09] MEDS ORDERED: Doxycycline Hyclate 100 MG TAB PO SCH (10:00)
[2024-04-09] MEDS ORDERED: Zinc Sulfate 220 MG Cap (Provides 50MG) PO SCH (10:00)
[2024-04-09] MEDS ORDERED: OxyCODONE HCL 10 MG TABCR PO SCH (10:00)
[2024-04-09 11:08] LABS: Bun/Creatinine Ratio 18.2 (12.0-20.0); Calcium, Blood 8.2 mg/dL (8.5-10.1); Creatinine, Blood 1.54 mg/dL (0.40-1.00); Potassium, Blood 3.4 mmol/L (3.5-5.5)
[2024-04-09 14:04] LABS: Bun/Creatinine Ratio 18.2 (12.0-20.0); Calcium, Blood 8.2 mg/dL (8.5-10.1); Creatinine, Blood 1.54 mg/dL (0.40-1.00); Potassium, Blood 3.7 mmol/L (3.5-5.5)
[2024-04-09 16:08] VITALS: BP 142/71
--- NOTE | 2024-04-09 17:29 | NUR ---
PATIENT A/OX4, TEARFUL ON AND OFF THROUGOUT THE SHIFT. GRANDDAUGHTER AT BEDSIDE FOR MOST OF THE DAY WHICH DID HELP HER EMOTIONALLY. REFUSED NEED FOR PREDNISONE MOUTH WASH. OXYCONTIN STARTED TODAY AND PATIENT WAS ABLE TO REST MORE. PATIENT INCONTINENT OF URINE, PUREWICK IN PLACE AT PATIENT REQUEST. FLUIDS INFUSING AT 50ML/HR. SKIN INTACT BESIDES SOME SCATTERED BRUISING AND SORES INSIDE MOUTH. PATIENT HOPING TO DC TOMORROW.
[2024-04-09 20:23] VITALS: BP 143/68
[2024-04-10 03:28] VITALS: BP 126/76
--- NOTE | 2024-04-10 05:57 | NUR ---
SHIFT SUMMARY PT A&O X4, MOODS LABILE AT TIMES BUT OVERALL COOPERATIVE WITH CARE. PT EXPRESSES DESIRE "TO GO HOME". VSS; SBP 120 - 140'S, HRR SR/SB WITH FIRST DEGREE HB AND BBB; RATE IN 58-64. PT DENIES CP/PRESSURE, SOB, DIZZINESS, N/V/D. PT CONTINUES TO REPORT PAIN IN HER MOUTH D/T SORES. MEDICATION PER EMAR WITH MODERATE RELIEF. PT ABLE TO EAT ABOUT 25% OF HER DINNER AND DENIES ANY ISSUES OR N/V. AFEBRILE, RR WNL AND SPO2 GREATER THAN 96% ON RA. PT CONTINUES TO HAVE COUGH. PUREWICK PLACED PER PT REQUEST; PT ENCOURAGED TO AMBULATE TO RESTROOM MUCH POSSIBLE PT IS INDEPENDENT. PT DID USE RESTROOM A FEW TIMES AND AMBULATED INDPENDENTLY, TOLERATED WELL. BLOOD CULTURES REMAIN NEGATIVE AT THIS TIME. CALL LIGHT IN REACH, PT ABLE TO CALL APPROPRIATELY AND MAKE NEEDS KNOWN. WILL UPDATE ONCOMING RN
[2024-04-10 08:02] VITALS: BP 147/76
[2024-04-10] MEDS ORDERED: Nitroglycerin 0.4 MG SUBL SL PRN (08:15)
[2024-04-10 08:40] VITALS: BP 127/69
[2024-04-10 08:53] LABS: Hematocrit 31.3 % (33.0-51.0); Hemoglobin 10.1 g/dL (11.5-16.0); Mean Corpuscular HGB 26.9 pg (26.0-34.0); Mean Corpuscular HGB Conc 32.3 g/dL (31.5-36.5); Mean Corpuscular Volume 84 fL (80-100); Mean Platelet Volume 9.7 fL (9.1-12.4); NRBC ABSOLUTE 0.12 K/mm3 (0.00-0.02); NRBC Auto 0.8 /100 WBC (0.0-0.2); Platelet Count 420 K/mm3 (150-400); RDW Coefficient Variation 17.7 % (11.7-14.2); RDW Standard Deviation 52.7 fL (35.1-46.3); Red Blood Cell Count 3.75 M/mm3 (3.80-5.20); White Blood Cell Count 15.68 K/mm3 (4.00-11.30)
[2024-04-10] MEDS ORDERED: Multivitamins/Minerals TAB PO SCH (09:00)
[2024-04-10] MEDS ORDERED: Vitamin B Cmplx/Vit C/Folic Ac 1 Tab PO SCH (09:00)
[2024-04-10] MEDS ORDERED: ALPRAZolam 0.25 MG Tab PO PRN (09:00)
[2024-04-10] MEDS ORDERED: Aspirin 325 MG Tab PO SCH (09:00)
[2024-04-10 09:30] LABS: Albumin, Blood 2.5 g/dL (3.4-5.0); Albumin/Globulin Ratio 0.6 (0.8-1.8); Bilirubin, Total 0.4 mg/dL (0.1-1.0); C-REACTIVE PROTEIN, EXT RANGE 1.95 mg/dL (0.000-0.300); Calcium, Blood 8.4 mg/dL (8.5-10.1); Creatinine, Blood 1.5 mg/dL (0.40-1.00); Magnesium, Blood 2.3 mg/dL (1.6-2.4); Potassium, Blood 3.7 mmol/L (3.5-5.5); Total Protein, Blood 6.5 g/dL (6.4-8.2)
[2024-04-10 09:56] LABS: BAND PERCENT MAN 4 % (0-8); BASOPHILS PERCENT MAN 0 % (0-2); EOSINOPHILS PERCENT MAN 0 % (0-6); LYMPHOCYTES ABSOLUTE MAN 2.19 K/mm3 (0.84-5.20); LYMPHOCYTES PERCENT MAN 14 % (21-46); METAMYELOCYTE ABSOLUTE MAN 0.62 K/mm3 (0.00-0.00); METAMYELOCYTE PERCENT MAN 4 % (0-0); MONOCYTES ABSOLUTE MAN 1.25 K/mm3 (0.16-1.47); MONOCYTES PERCENT MAN 8 % (4-13); MYELOCYTE ABSOLUTE MAN 0.15 K/mm3 (0.00-0.00); MYELOCYTE PERCENT MAN 1 % (0-0); NEUTROPHILS ABSOLUTE MAN 11.44 K/mm3 (1.96-9.15); SEG NEUTROPHILS PERCENT MAN 69 % (41-73); TOTAL CELLS COUNTED 100
[2024-04-10] MEDS ORDERED: Potassium Phosphate Dibasic 10 MM in Dextrose 5% 250 ML IV STA (11:11)
[2024-04-10 15:07] VITALS: BP 116/70
--- NOTE | 2024-04-10 18:44 | NUR ---
PATIENT A/OX4, UP INDEPENDENTLY IN ROOM. PATIENT HAD CHEST PRESSURE THIS AM, TROP NEGATIVE. CHEST PRESSURE SUBSIDED AFTER DOSE OF XANAX. PATIENT COVID POS, VSS, ON RA. NAUSEA IMPROVED SOME THIS AFTERNOON. ZOFRAN SCHEDULED TO TREAT. PATIENT REPORTS PAIN IN OUTH HAS IMPROVED AND IS ABLE TO EAT A BIT MORE. NO OTHER NEW CONCERNS THIS SHIFT. PATIENT HOPING TO GO HOME TOMORROW.
[2024-04-10 20:31] VITALS: BP 116/55
[2024-04-11 02:34] VITALS: BP 134/64
--- NOTE | 2024-04-11 06:21 | NUR ---
SHIFT SUMMARY PT IS A&OX4, PLEASANT AND APPRECIATIVE OF CARES. VSS ON RA. PER TELEMETRY PT IS SR @ 73- SB @ 56. DENIES ANY CHEST PAIN/PRESSURE THIS SHIFT. C/O PAIN 10/10 IN HER THROAT AND MOUTH MEDICATED WITH SCHEDULED 10 MG OXYCONTIN AND PRN 10 MG NORCO. PT RESTING IN BETWEEN CARES. TOLERATING A RENAL DIET. WICKING SYSTEM DRAINING WATERMELON COLORED URINE. PT STATES SHE TOLD HER KIDNEY DOCTOR ABOUT THIS YESTERDAY. PT SEEMS CONCERNED ABOUT THE COLOR WITH HER HX OF BLADDER CA. NO BM THIS SHIFT. PT IS INDEPENDENT IN ROOM. PT LOOKING FORWARD TO GOING HOME TODAY. BED IN LOWEST POSITION, CALL LIGHT WITHIN REACH. ENHANCED PRECAUTIONS MAINTAINED FOR COVID.
[2024-04-11 07:23] VITALS: BP 152/63
[2024-04-11] MEDS ORDERED: Famotidine 10 MG/ML 2ML Vial IV SCH (09:00)
[2024-04-11] MEDS ORDERED: Sennosides 8.6 MG Tab PO PRN (10:35)
[2024-04-11] MEDS ORDERED: Polyethylene Glycol 3350 17 gm PO PRN (10:35)
[2024-04-11] MEDS ORDERED: Benzocaine Oral Spray 0.5ML UD MT PRN (10:40)
--- NOTE | 2024-04-11 13:47 | NUR ---
SHIFT SUMMARY PT AWAKE AT START OF SHIFT, DURING SHIFT REPORT, TALKING ON PHONE. DR WOO IN TO SEE PT DURING BREAKFAST. PT ENCOURAGED TO GET UP TO CHAIR. PT VERY ANXIOUS AND BEGAN CRYING D/T LINES AND TUBING. IVF'S AND TELE D/C'D. PT ABLE TO GET UP TO SHOWER AND THEN TO CHAIR FOR AN HOUR. PUREWICK IN PLACE PER PT REQUEST D/T INCONTINENCE, DRAINING BRIGHT RED COLORED URINE. DR WOO TO NOTIFY DR VIEIRA TO SEE PT. ASA AND HEPARIN HELD TODAY. BOWEL CARE STARTED PER PT REQUEST AND PER EMAR. PT LATER WANTING TO GO HOME; DR WOO NOTIFIED. PT TO WAIT FOR DR VIEIRA TO SEE HER AND CLEAR HER FOR D/C. PT NOW BACK IN BED, RESTING QUIETLY WATCHING TV. CALL LT IN REACH.
[2024-04-11 15:26] VITALS: BP 133/78
[2024-04-11 16:55] LABS: BASOPHILS ABSOLUTE AUTO 0.05 K/mm3 (0.00-0.23); BASOPHILS PERCENT AUTO 0 % (0-2); EOSINOPHILS PERCENT AUTO 0 % (0-6); IMMATURE GRAN PERCENT AUTO 5 % (0-1); LYMPHOCYTES ABSOLUTE AUTO 0.96 K/mm3 (0.84-5.20); LYMPHOCYTES PERCENT AUTO 5 % (21-46); MONOCYTES PERCENT AUTO 2 % (4-13); Mean Corpuscular HGB 27.6 pg (26.0-34.0); Mean Corpuscular HGB Conc 32.3 g/dL (31.5-36.5); Mean Corpuscular Volume 86 fL (80-100); Mean Platelet Volume 10.2 fL (9.1-12.4); NEUTROPHILS ABSOLUTE AUTO 16.21 K/mm3 (1.96-9.15); NEUTROPHILS PERCENT AUTO 87 % (41-73); NRBC ABSOLUTE 0.05 K/mm3 (0.00-0.02); NRBC Auto 0.3 /100 WBC (0.0-0.2); Platelet Count 412 K/mm3 (150-400); RDW Coefficient Variation 18.7 % (11.7-14.2); RDW Standard Deviation 54.3 fL (35.1-46.3); Red Blood Cell Count 3.62 M/mm3 (3.80-5.20); White Blood Cell Count 18.52 K/mm3 (4.00-11.30)
[2024-04-11 19:25] VITALS: BP 118/49
[2024-04-12 03:13] VITALS: BP 131/64
[2024-04-12 05:12] LABS: Hematocrit 28.9 % (33.0-51.0); Mean Corpuscular HGB 26.8 pg (26.0-34.0); Mean Corpuscular HGB Conc 31.1 g/dL (31.5-36.5); Mean Corpuscular Volume 86 fL (80-100); Mean Platelet Volume 10.6 fL (9.1-12.4); NRBC ABSOLUTE 0.05 K/mm3 (0.00-0.02); NRBC Auto 0.3 /100 WBC (0.0-0.2); Platelet Count 351 K/mm3 (150-400); RDW Standard Deviation 54.4 fL (35.1-46.3); Red Blood Cell Count 3.36 M/mm3 (3.80-5.20); White Blood Cell Count 17.02 K/mm3 (4.00-11.30)
--- NOTE | 2024-04-12 05:15 | NUR ---
SHIFT SUMMARY PT IS A&OX4, MOOD IS LABILE, TEARFUL AT TIMES. VSS ON RA. DENIES ANY CP/PRESSURE THIS SHIFT. PRN 0.25 MG PO XANAX ADMINISTERED, THIS HELPS PT WELL WITH SOME OF HER ANXIETIES. C/O PAIN IN HER MOUTH AND THROAT, MEDICATED WITH SCHEDULES 10 MG PO OXYCONTIN. PT RESTING BETWEEN CARES. PT HAVING HEMATURIA, WATERMELON COLORED URINE VIA THE WICKING SYSTEM. NO BM THIS SHIFT. PT IS INDEPENDENT IN ROOM/BR. BED IN LOWEST POSITION, CALL LIGHT WITHIN REACH. ENHANCED PRECATIONS MAINTAINED FOR COVID.
[2024-04-12 05:36] LABS: Albumin, Blood 2.4 g/dL (3.4-5.0); Anion Gap 11 mmol/L (3-11); Blood Urea Nitrogen 33 mg/dL (8-24); Bun/Creatinine Ratio 21.4 (12.0-20.0); CO2, Blood 26 mmol/L (21-32); Calcium, Blood 8.4 mg/dL (8.5-10.1); Chloride, Blood 109 mmol/L (98-108); Creatinine, Blood 1.54 mg/dL (0.40-1.00); Glomerular Filtration Rate 34 (60-); Glucose, Blood 96 mg/dL (70-99); Phosphorus, Blood 2.8 mg/dL (2.5-4.9); Potassium, Blood 4.5 mmol/L (3.5-5.5); Sodium, Blood 141 mmol/L (136-145)
[2024-04-12 06:08] LABS: BASOPHILS PERCENT MAN 0 % (0-2); EOSINOPHILS PERCENT MAN 0 % (0-6); LYMPHOCYTES ABSOLUTE MAN 2.04 K/mm3 (0.84-5.20); LYMPHOCYTES PERCENT MAN 12 % (21-46); MONOCYTES ABSOLUTE MAN 1.02 K/mm3 (0.16-1.47); MONOCYTES PERCENT MAN 6 % (4-13); MYELOCYTE ABSOLUTE MAN 0.17 K/mm3 (0.00-0.00); MYELOCYTE PERCENT MAN 1 % (0-0); NEUTROPHILS ABSOLUTE MAN 13.78 K/mm3 (1.96-9.15); SEG NEUTROPHILS PERCENT MAN 81 % (41-73); TOTAL CELLS COUNTED 100
[2024-04-12 07:48] VITALS: BP 133/61
[2024-04-12] MEDS ORDERED: dexAMETHasone 4 MG TAB PO SCH (09:00)
[2024-04-12] MEDS ORDERED: DECADRON4 M1 PO (13:37)
[2024-04-12] MEDS ORDERED: OXYCONTIN10 MG PO (13:39)
--- NOTE | 2024-04-12 17:46 | NUR ---
PT RESTING QUIETLY AT START OF SHIFT. UP TO CHAIR FOR BREAKFAST. DR WOO IN TO SEE PT AND DISCUSS PLAN OF CARE. PT WANTING TO GO HOME. URINE OUTPUT SMOKE AND FLAME SPECIALIST KATHERINE COLORED TODAY, RATHER THAN COCHRAN. PER NOC SHIFT REPORT, DR Cordova IN TO SEE PT DURING THE NIGHT. NO NEW ORDERS PLACED. AFTER DISCUSSING LABS AND PLAN OF CARE, PT ABLE TO D/C TO HOME THIS AFTERNOON. PT TO FOLLOW UP WITH PCP AND NEPHROLOGY RECOMMENDED. D/C INSTRUCTIONS REVIEWED WITH PT; VERBALIZED UNDERSTANDING. HARD SCRIPT GIVEN TO PT; COPY PLACED ON CHART. PT ASSISTED OUT TO FRIEND'S CAR VIA W/C WITH ALL BELONGINGS.
[2024-04-13] MEDS ORDERED: Ferrous Gluconate 325 MG Tablet PO SCH (09:00)
== END 2024-04-12 14:12 | disposition home health service (06) | DRG 682 ==
LOC: ER 21:11 → ERHOLD 21:12 → MEDS 21:12
PROVIDERS: Emergency Medicine; Family Medicine; Hospitalist; Internal Medicine Nephrology; Student in an Organized Health Care Education/Training Program; ADMIT Student in an Organized Health Care Education/Training Program
PROC: XW033E5 Introduction of Remdesivir Anti-infective into Peripheral Vein, Percutaneous Approach, New Technology Group 5 (ICD-10-PCS; principal; 2024-04-04)
DX: N17.9 Acute kidney failure, unspecified (principal); U07.1 COVID-19; E87.20 Acidosis, unspecified; M31.31 Wegener's granulomatosis with renal involvement; N39.0 Urinary tract infection, site not specified; K12.1 Other forms of stomatitis; M27.0 Developmental disorders of jaws; N18.4 Chronic kidney disease, stage 4 (severe); E86.0 Dehydration; R07.89 Other chest pain; C67.9 Malignant neoplasm of bladder, unspecified; Z66 Do not resuscitate; E03.9 Hypothyroidism, unspecified; E78.00 Pure hypercholesterolemia, unspecified; Z90.710 Acquired absence of both cervix and uterus; F10.90 Alcohol use, unspecified, uncomplicated; Z79.899 Other long term (current) drug therapy; D63.1 Anemia in chronic kidney disease; D50.9 Iron deficiency anemia, unspecified; R31.0 Gross hematuria
CPT/HCPCS: 36415; 71046; 76770; 80048; 80053; 80069; 81001; 82728; 83540; 83550; 83605; 83735; 84100; 84443; 84484; 85025; 85651; 86140; 87040; 87077; 87081; 87086; 87186; 87430; 93005; 93010; 94640; 94664; 94760; 94762; 96361; 96365; 96366; 96367; 96372; 96375; 96376; 97116; 97162; 99285-25; A9270; G0378; J0248; J0456; J0696; J1100; J1170; J1644; J2405; J2916; J2919; J7030; J7050; J7060; U0002

== ENCOUNTER 2024-04-15 13:52 | Inpatient (IN) | payer OTHER, MEDICARE ==
[2024-04-15] VITALS (8 sets, daily range): BP systolic 124–148; BP diastolic 68–85
[~2024-04-15] VITALS: Ht 165.1 cm; Wt 57.1 kg
[~2024-04-15 13:52] MED LIST changes: +DECADRON4 M1 PO; +OXYCONTIN10 MG PO
[2024-04-15] MEDS ORDERED: FAMO20 PO (14:39)
[2024-04-15] MEDS ORDERED: NS 1,000 ML IV SCH ×2 (15:05→19:00)
[2024-04-15] MEDS ORDERED: CefTRIAXone Sodium 1,000 MG in NS 50 ML IV ONE (16:35)
[2024-04-15] MEDS ORDERED: MetroNIDAZOLE 500MG/NS 100 ml 100 ML IV ONE (16:40)
[2024-04-15 16:54] LABS: Albumin, Blood 2.8 g/dL (3.4-5.0); Albumin/Globulin Ratio 0.5 (0.8-1.8); Bun/Creatinine Ratio 22.7 (12.0-20.0); Calcium, Blood 9.2 mg/dL (8.5-10.1); Creatinine, Blood 1.72 mg/dL (0.40-1.00); Globulin, Blood 5.3 g/dL (2.2-4.0); Potassium, Blood 4.9 mmol/L (3.5-5.5); Total Protein, Blood 8.1 g/dL (6.4-8.2)
[2024-04-15] MEDS ORDERED: FentaNYL Citrate 50 MCG/ML 2 ML Injection IV ONE (17:05)
[2024-04-15] MEDS ORDERED: propofoL 20 ML IV ONE (18:03)
[2024-04-15] MEDS ORDERED: Lidocaine HCl 2% 20 ML MDV ONE (18:03)
[2024-04-15] MEDS ORDERED: FentaNYL Citrate 50 MCG/ML 2 ML Injection ONE (18:04)
[2024-04-15] MEDS ORDERED: Rocuronium Bromide 10 MG/ML 5ML Injection IV ONE ×2 (18:05→19:36)
[2024-04-15] MEDS ORDERED: Lidocaine HCl 2% Jelly 120MG/6ML SYR (20MG PER ML) ONE (18:09)
[2024-04-15] MEDS ORDERED: Ondansetron HCl 2 MG / ML 2ML Vial IV PRN ×2 (18:45→20:20)
[2024-04-15] MEDS ORDERED: FentaNYL Citrate 50 MCG/ML 2 ML Injection IV PRN ×4 (18:45→20:20)
[2024-04-15] MEDS ORDERED: Piperacillin/Tazobactam Sod 3.375 GM in NS 100 ML IV ONE (18:50)
[2024-04-15] MEDS ORDERED: Bupivacaine 0.5% HCl 5 MG/ML 30MLVIAL ONE (18:52)
[2024-04-15] MEDS ORDERED: Phenylephrine HCl 100 MCG/ML-NS 10MLSYR (1MG/10ML) ONE (19:07)
[2024-04-15] MEDS ORDERED: Dexamethasone Sod Phos 10 MG/ML 1ML VIAL ONE (19:17)
[2024-04-15] MEDS ORDERED: Ondansetron HCl 2 MG / ML 2ML Vial ONE (19:17)
[2024-04-15] MEDS ORDERED: Piperacillin/Tazobactam Sod 3.375 GM ONE (19:18)
[2024-04-15] MEDS ORDERED: Glycopyrrolate 0.2 MG/ML 5ML VIAL ONE (19:22)
[2024-04-15] MEDS ORDERED: ePHEDrine Sulfate 50 MG/ML 1ML Injection ONE (19:24)
[2024-04-15] MEDS ORDERED: Labetalol HCL 5 MG/ML 4ML Injection (Single Dose) ONE (19:41)
[2024-04-15] MEDS ORDERED: Famotidine 10 MG/ML 2ML Vial IV SCH ×2 (21:00)
[2024-04-15] MEDS ORDERED: Docusate Sodium 100 MG Cap PO SCH ×2 (21:00)
[2024-04-15] MEDS ORDERED: Lactobacil 2-S.Thermo-Bifido 1 1 Cap PO SCH (21:00)
[2024-04-15] MEDS ORDERED: Sugammadex Sodium 200 MG/2ML SDV (100 MG/ML) ONE (21:05)
[2024-04-15 22:23] LABS: Source, Urine Foley catheter
[2024-04-15 22:29] LABS: Appearance, Urine Hazy (Clear); Bilirubin, Urine Neg (Neg); Blood, Urine 5+ (Neg); Glucose Qualitative, Urine 1+ (Neg); Ketones, Urine Neg (Neg); Leukocyte Esterase, Urine 1+ (Neg); Nitrite, Urine Neg (Neg); Protein, Urine 2+ (Neg); Urobilinogen, Urine NORM (Normal); pH, Urine 6.5 (5.0-8.0)
[2024-04-15 22:36] LABS: Color, Urine Pale Yellow (P-Yellow)
[2024-04-15 22:38] LABS: Bacteria Mod /hpf; Red Blood Cells, Urine TNTC /hpf (0-2); Squamous Epithelial Cells Rare /hpf (Few); White Blood Cells, Urine 0-2 /hpf (0-5)
[2024-04-15 23:39] LABS: Influenza A, PCR NEGATIVE (NEGATIVE); Influenza B, PCR NEGATIVE (NEGATIVE); Resp Syncytial Virus, PCR NEGATIVE (NEGATIVE)
[2024-04-16] VITALS (26 sets, daily range): BP systolic 87–147; BP diastolic 53–87
[2024-04-16] LABS: SARS-Cov-2 (COVID-19) PCR, MMC POSITIVE (NEGATIVE)
[2024-04-16] MEDS ORDERED: Piperacillin/Tazobactam Sod 2.25 GM in NS 50 ML IV SCH
[2024-04-16 03:16] LABS: BASOPHILS ABSOLUTE AUTO 0.04 K/mm3 (0.00-0.23); BASOPHILS PERCENT AUTO 0 % (0-2); EOSINOPHILS PERCENT AUTO 0 % (0-6); Hematocrit 28.8 % (33.0-51.0); Hemoglobin 9.1 g/dL (11.5-16.0); IMMATURE GRAN ABSOLUTE AUTO 0.32 K/mm3 (0.00-0.10); IMMATURE GRAN PERCENT AUTO 1 % (0-1); LYMPHOCYTES ABSOLUTE AUTO 0.66 K/mm3 (0.84-5.20); LYMPHOCYTES PERCENT AUTO 2 % (21-46); MONOCYTES ABSOLUTE AUTO 1.82 K/mm3 (0.16-1.47); MONOCYTES PERCENT AUTO 7 % (4-13); Mean Corpuscular HGB 28.3 pg (26.0-34.0); Mean Corpuscular HGB Conc 31.6 g/dL (31.5-36.5); Mean Corpuscular Volume 90 fL (80-100); Mean Platelet Volume 10.7 fL (9.1-12.4); NEUTROPHILS ABSOLUTE AUTO 24.16 K/mm3 (1.96-9.15); NEUTROPHILS PERCENT AUTO 90 % (41-73); Platelet Count 328 K/mm3 (150-400); RDW Coefficient Variation 20.3 % (11.7-14.2); RDW Standard Deviation 62.7 fL (35.1-46.3); Red Blood Cell Count 3.21 M/mm3 (3.80-5.20)
[2024-04-16 03:35] LABS: Albumin, Blood 2.4 g/dL (3.4-5.0); Albumin/Globulin Ratio 0.6 (0.8-1.8); Bilirubin, Total 0.6 mg/dL (0.1-1.0); Bun/Creatinine Ratio 20.6 (12.0-20.0); Calcium, Blood 7.7 mg/dL (8.5-10.1); Creatinine, Blood 1.41 mg/dL (0.40-1.00); Potassium, Blood 5.2 mmol/L (3.5-5.5); Total Protein, Blood 6.4 g/dL (6.4-8.2)
[2024-04-16] MEDS ORDERED: Pantoprazole Sodium 40 MG Injection IV SCH (06:00)
--- NOTE | 2024-04-16 06:36 | NUR ---
PATIENT CAME TO ICU OVERNIGHT AFTER A SIGMOID RESECTION. PATIENT IS A&O X3-4. PATIENT IS NSR. PATIENT HAS PRN FENT PUSHES IV FOR PAIN. PATIENT IS ON ROOM AIR. RASHEED IN PLACE DRAINING TO GRAVITY. PATIENT HAS 4 SITES FROM PROCDURE. PATIENT IS DOING WELL NO NEEDS AT THIS TIME.
[2024-04-16] MEDS ORDERED: OxyCODONE HCL 5 MG TAB PO PRN (08:55)
--- NOTE | 2024-04-16 09:09 | NUR ---
ASSUMPTION OF CARE PT A&OX4. FOLLOWING COMMANDS, ANH. C/O SEVERE MOUTH PAIN FROM SORES TO ROOF OF MOUTH AND TONGUE THAT PT RELATES TO BIMAL. HAS BEEN TREATED WITH A VARIETY OF SPRAYS AND RINSES DURING PRIOR VISIT WITH NO RELIEF. PT ALSO C/O MODERATE ABDOMINAL PAIN, MEDICATING WITH PRN FENTANYL WITH ADEQUATE RELIEF. STOMA APPLIANCE IN PLACE, STOMA PINK, NO STOOL AT THIS TIME. BT'S ACTIVE IN ALL QUADRANTS. RASHEED CATH PATENT, DRAINING JOS URINE. OFFERING TO GET PT UP OUT OF BED BUT PT REFUSING AT THIS TIME. VERY DEPRESSED MOOD.
[2024-04-16] MEDS ORDERED: Lidocaine 2% Viscous Soln 20 ML,Nystatin 100,000 Unit/ml Susp 20 ML,Mag Hydrox/Al Hydro... MT PRN (09:30)
--- NOTE | 2024-04-16 10:30 | NUR ---
UPDATE PT INITIALLY REQUESTING SOMETHING FOR HER SORE MOUTH. THIS NURSE OFFERED THE ORDERED MOUTH RINSE BUT PT NOW REFUSING. NOT INTERACTING MUCH WITH STAFF. TEARFUL/ WITHDRAWN.
[2024-04-16] MEDS ORDERED: Piperacillin/Tazobactam Sod 3.375 GM in NS 100 ML IV SCH (12:00)
[2024-04-16] MEDS ORDERED: Pregabalin 25 MG Capsule PO SCH (12:00)
[2024-04-16] MEDS ORDERED: Cholecalciferol 1000 Unit Tablet (=25MCG) PO SCH (12:00)
[2024-04-16] MEDS ORDERED: Zinc Sulfate 220 MG Cap (Provides 50MG) PO SCH (12:00)
[2024-04-16] MEDS ORDERED: NS 1,000 ML IV SCH (15:50)
[2024-04-16] MEDS ORDERED: Phenol/Sodium Phenolate Oral Spray 180 ML MM PRN (15:55)
--- NOTE | 2024-04-16 17:48 | NUR ---
PT ARRIVED TO UNIT FROM ICU THIS AFTERNOON PT STOOD AND TRANSFERRED W/MINIMAL ASSISTANCE FROM ICU BED TO SURGICAL BED. TELE PLACED PER ORDERS; PT SR AT 71 PER JOSE/CARD CUTTER. OSTOMY BEEFY PINK AND MOIST. TRACE AMOUNT SS FLUID IN OSTOMY APPLIANCE. CALL LIGHT IN REACH.
[2024-04-17 03:43] VITALS: BP 138/70
--- NOTE | 2024-04-17 04:49 | NUR ---
SHIFT SUMMARY PT IS POD2 FOR A COLECTOMY W/ NEW COLOSTOMY. PT IS ALSO POSITIVE FOR COVID. PT HAVING OCCASIONAL COUGH AND HAS ONGOING MOUTH SORES. PT IS HAVING SMALL AMOUNT OF LIQUID BROWN OUTPUT FROM OSTOMY. OSTOMY PINK AND BEEFY. PT DENIES N/V, DID REQUIRE PO PAIN MEDS W/ TOLERABLE RESULTS. ABX AND IV FLUIDS GIVEN PER EMAR. RASHEED IN PLACE DRAINING YELLOW URINE. USING CALL LIGHT APPROPRIATELY.
[2024-04-17 06:49] LABS: BASOPHILS ABSOLUTE AUTO 0.01 K/mm3 (0.00-0.23); BASOPHILS PERCENT AUTO 0 % (0-2); EOSINOPHILS ABSOLUTE AUTO 0.09 K/mm3 (0.00-0.68); EOSINOPHILS PERCENT AUTO 1 % (0-6); Hematocrit 23.6 % (33.0-51.0); Hemoglobin 7.3 g/dL (11.5-16.0); IMMATURE GRAN ABSOLUTE AUTO 0.14 K/mm3 (0.00-0.10); IMMATURE GRAN PERCENT AUTO 1 % (0-1); LYMPHOCYTES ABSOLUTE AUTO 2.46 K/mm3 (0.84-5.20); LYMPHOCYTES PERCENT AUTO 23 % (21-46); MONOCYTES ABSOLUTE AUTO 1.77 K/mm3 (0.16-1.47); MONOCYTES PERCENT AUTO 16 % (4-13); Mean Corpuscular HGB 28.4 pg (26.0-34.0); Mean Corpuscular HGB Conc 30.9 g/dL (31.5-36.5); Mean Corpuscular Volume 92 fL (80-100); Mean Platelet Volume 10.7 fL (9.1-12.4); NEUTROPHILS ABSOLUTE AUTO 6.32 K/mm3 (1.96-9.15); NEUTROPHILS PERCENT AUTO 59 % (41-73); Platelet Count 294 K/mm3 (150-400); RDW Standard Deviation 68.1 fL (35.1-46.3); Red Blood Cell Count 2.57 M/mm3 (3.80-5.20); White Blood Cell Count 10.79 K/mm3 (4.00-11.30)
[2024-04-17 07:03] LABS: Albumin, Blood 1.9 g/dL (3.4-5.0); Albumin/Globulin Ratio 0.6 (0.8-1.8); Bilirubin, Total 0.6 mg/dL (0.1-1.0); Bun/Creatinine Ratio 12.6 (12.0-20.0); Calcium, Blood 7.7 mg/dL (8.5-10.1); Creatinine, Blood 1.51 mg/dL (0.40-1.00); Globulin, Blood 3.3 g/dL (2.2-4.0); Magnesium, Blood 2.3 mg/dL (1.6-2.4); Phosphorus, Blood 2.9 mg/dL (2.5-4.9); Total Protein, Blood 5.2 g/dL (6.4-8.2)
[2024-04-17 07:14] VITALS: BP 139/62
[2024-04-17] MEDS ORDERED: Multivitamins-Minerals Liquid 15 ML Oral Syringe PO SCH (09:00)
[2024-04-17] MEDS ORDERED: Omeprazole 20 MG CapCR PO SCH (16:30)
[2024-04-17 16:50] VITALS: BP 150/70
--- NOTE | 2024-04-17 17:14 | NUR ---
SUMMARY NO ACUTE CHANGES T/O SHIFT. MEDICATED PT PER ORDERS FOR PAIN AND ONCE DURING SHIFT FOR NAUSEA. OSTOMY PUTTING OUT THICK BROWN STOOL. PT TEARFUL AT TIMES BUT INTERESTED IN ADVANCING DIET AND LEARNING OSTOMY CARE. CALL LIGHT IN REACH.
[2024-04-17 18:20] LABS: Hematocrit 27.4 % (33.0-51.0); Hemoglobin 8.4 g/dL (11.5-16.0); Mean Corpuscular HGB 28.6 pg (26.0-34.0); Mean Corpuscular HGB Conc 30.7 g/dL (31.5-36.5); Mean Corpuscular Volume 93 fL (80-100); Mean Platelet Volume 10.7 fL (9.1-12.4); Platelet Count 325 K/mm3 (150-400); RDW Coefficient Variation 21.2 % (11.7-14.2); RDW Standard Deviation 70.7 fL (35.1-46.3); Red Blood Cell Count 2.94 M/mm3 (3.80-5.20); White Blood Cell Count 12.66 K/mm3 (4.00-11.30)
[2024-04-17 19:26] VITALS: BP 115/57
[2024-04-18 02:08] VITALS: BP 132/68
--- NOTE | 2024-04-18 05:27 | NUR ---
SHIFT SUMMARY PT RESTED MOST OF SHIFT. IV ABX GIVEN ORDERED. PT REPORTS SORE THROAT, WILL PASS ON TO DAY SHIFT. VSS. PAIN MANAGED W/ PO PAIN MEDS PER EMAR. OSTOMY OUTPUT THICK AND BROWN. DRESSINGS C/D/I. RASHEED IN PLACE DRAINING YELLOW URINE, PT CALLING APPROPRIATELY.
[2024-04-18 06:23] LABS: BASOPHILS ABSOLUTE AUTO 0.01 K/mm3 (0.00-0.23); BASOPHILS PERCENT AUTO 0 % (0-2); EOSINOPHILS ABSOLUTE AUTO 0.33 K/mm3 (0.00-0.68); EOSINOPHILS PERCENT AUTO 3 % (0-6); Hematocrit 26.4 % (33.0-51.0); Hemoglobin 8.3 g/dL (11.5-16.0); IMMATURE GRAN ABSOLUTE AUTO 0.19 K/mm3 (0.00-0.10); IMMATURE GRAN PERCENT AUTO 2 % (0-1); LYMPHOCYTES ABSOLUTE AUTO 2.06 K/mm3 (0.84-5.20); LYMPHOCYTES PERCENT AUTO 18 % (21-46); MONOCYTES ABSOLUTE AUTO 1.69 K/mm3 (0.16-1.47); MONOCYTES PERCENT AUTO 15 % (4-13); Mean Corpuscular HGB 28.7 pg (26.0-34.0); Mean Corpuscular HGB Conc 31.4 g/dL (31.5-36.5); Mean Corpuscular Volume 91 fL (80-100); Mean Platelet Volume 10.8 fL (9.1-12.4); NEUTROPHILS ABSOLUTE AUTO 7.32 K/mm3 (1.96-9.15); NEUTROPHILS PERCENT AUTO 63 % (41-73); Platelet Count 316 K/mm3 (150-400); RDW Coefficient Variation 20.8 % (11.7-14.2); RDW Standard Deviation 67.2 fL (35.1-46.3); Red Blood Cell Count 2.89 M/mm3 (3.80-5.20)
[2024-04-18 06:40] LABS: Bun/Creatinine Ratio 8.2 (12.0-20.0); Calcium, Blood 7.8 mg/dL (8.5-10.1); Creatinine, Blood 1.59 mg/dL (0.40-1.00)
[2024-04-18 07:17] VITALS: BP 120/61
[2024-04-18] MEDS ORDERED: Magnesium Hydroxide Conc 10 ML UDC PO SCH (09:00)
[2024-04-18] MEDS ORDERED: Sodium Bicarbonate 650 MG Tab PO SCH (09:00)
[2024-04-18] MEDS ORDERED: Piperacillin/Tazobactam Sod 2.25 GM in NS 50 ML IV SCH (12:00)
[2024-04-18 14:37] VITALS: BP 115/62
[2024-04-18] MEDS ORDERED: Polyethylene Glycol 3350 17 gm PO PRN (16:45)
[2024-04-18] MEDS ORDERED: NS 1,000 ML IV SCH (16:50)
--- NOTE | 2024-04-18 17:50 | NUR ---
SHIFT SUMMARY POD 3 LAP SIGMOID COLLECTOMY, A/XO4, VSS, TOLERATING PO, ADVANCED DIET TO REGULAR BUT AFTER DINNER DRAYS HAD BEEN DELIVERED, SOFT THICK OUTPUT FROM OSTOMY FROM STOMA, ABLE TO AMBULATE TO THE BATHROOM. PLANS FOR POSSIBLE DC TOMORROW, PLAN TO DEMONSTRATED OSTOMY REPLACEMENT IN THE AM. NO ACUTE EVENTS THIS SHIFT, CALL LIGHT IN [facility].
[2024-04-18 19:33] VITALS: BP 128/58
[2024-04-19 02:34] VITALS: BP 130/67
--- NOTE | 2024-04-19 05:10 | NUR ---
SHIFT SUMMARY PT RESTED MOST OF THE NIGHT. PAIN MANAGED W/ PO PAIN MEDS. OSTOMY OUTPUT THICK AND BROWN. OFFERED OSTOMY EDUCATION TO PT, PT EAGER TO LEARN AND ASSISTED W/ EMPTYING OSTOMY. PT HAVING INC VOIDS WHICH IS HER BASELINE. VSS. FLUIDS AND IV ABX RUNNING ORDERED. PT TOLERATING REG DIET AND FLUIDS. USING CALL LIGHT APPROPRIATELY.
[2024-04-19 07:09] VITALS: BP 113/60
[2024-04-19 07:35] LABS: Bun/Creatinine Ratio 9.5 (12.0-20.0); Calcium, Blood 8.4 mg/dL (8.5-10.1); Creatinine, Blood 1.79 mg/dL (0.40-1.00)
[2024-04-19 14:11] VITALS: BP 113/80
--- NOTE | 2024-04-19 18:34 | NUR ---
SHIFT SUMMARY POD4 LAP SIG COLECTOMY, A/OX4, VSS, TOLERATING PO, STOOL FROM STOMA, FULL OSTOMY CHANGE TODAY WITH EDUCATION PROVIDED BY ASPHALT RAKER. NO ACUTE EVENTS THIS SHIFT, CALL LIGHT IN REACH.
[2024-04-19 19:36] LABS: Source, Urine Straight Cath
[2024-04-19 19:43] LABS: Appearance, Urine Clear (Clear); Bilirubin, Urine Neg (Neg); Blood, Urine 3+ (Neg); Glucose Qualitative, Urine Neg (Neg); Ketones, Urine Neg (Neg); Leukocyte Esterase, Urine Neg (Neg); Nitrite, Urine Neg (Neg); Protein, Urine 1+ (Neg); Urobilinogen, Urine NORM (Normal)
[2024-04-19 19:46] LABS: Color, Urine Pale Yellow (P-Yellow)
[2024-04-19 20:00] LABS: Bacteria Few /hpf; Hyaline Casts 0-2 /lpf (0-2); Squamous Epithelial Cells Few /hpf (Few); White Blood Cells, Urine 0-2 /hpf (0-5)
[2024-04-19 20:24] VITALS: BP 136/62
[2024-04-19] MEDS ORDERED: Acetaminophen 500 MG Tab PO PRN (23:35)
[2024-04-20] MEDS ORDERED: NS 50 ML IV ONE ×4 (05:00→23:13)
[2024-04-20 05:05] VITALS: BP 133/65
[2024-04-20 06:18] LABS: BASOPHILS ABSOLUTE AUTO 0.02 K/mm3 (0.00-0.23); BASOPHILS PERCENT AUTO 0 % (0-2); EOSINOPHILS ABSOLUTE AUTO 0.44 K/mm3 (0.00-0.68); EOSINOPHILS PERCENT AUTO 4 % (0-6); Hematocrit 26.2 % (33.0-51.0); Hemoglobin 8.2 g/dL (11.5-16.0); IMMATURE GRAN ABSOLUTE AUTO 0.16 K/mm3 (0.00-0.10); IMMATURE GRAN PERCENT AUTO 2 % (0-1); LYMPHOCYTES ABSOLUTE AUTO 1.41 K/mm3 (0.84-5.20); LYMPHOCYTES PERCENT AUTO 14 % (21-46); MONOCYTES ABSOLUTE AUTO 0.87 K/mm3 (0.16-1.47); MONOCYTES PERCENT AUTO 9 % (4-13); Mean Corpuscular HGB 28.7 pg (26.0-34.0); Mean Corpuscular HGB Conc 31.3 g/dL (31.5-36.5); Mean Corpuscular Volume 92 fL (80-100); Mean Platelet Volume 10.4 fL (9.1-12.4); NEUTROPHILS ABSOLUTE AUTO 7.32 K/mm3 (1.96-9.15); NEUTROPHILS PERCENT AUTO 72 % (41-73); Platelet Count 287 K/mm3 (150-400); RDW Standard Deviation 68.9 fL (35.1-46.3); Red Blood Cell Count 2.86 M/mm3 (3.80-5.20); White Blood Cell Count 10.22 K/mm3 (4.00-11.30)
[2024-04-20 06:39] LABS: Bun/Creatinine Ratio 9.8 (12.0-20.0); Calcium, Blood 8.3 mg/dL (8.5-10.1); Creatinine, Blood 1.64 mg/dL (0.40-1.00); Potassium, Blood 4.2 mmol/L (3.5-5.5)
--- NOTE | 2024-04-20 06:41 | NUR ---
SHIFT SUMMARY NO ACUTE CHANGES TO REPORT OVERNIGHT, PT HAS RESTED T/O NIGHT. OSTOMY PUTTING OUT STOOL. SURGICAL SITE WNL. PT VOIDING WITH PUREWICK IN PLACE. VITALS STABLE. PAIN MANAGED WITH MEDS PER ORDERS. BED IN LOWEST POSITION, CALL LIGHT WITHIN REACH.
[2024-04-20 07:13] VITALS: BP 126/62
[2024-04-20] MEDS ORDERED: Sodium Bicarbonate 650 MG Tab PO SCH (09:00)
[2024-04-20] MEDS ORDERED: GuaiFENesin 600 MG TabCR PO SCH (11:00)
[2024-04-20 15:08] VITALS: BP 122/64
--- NOTE | 2024-04-20 17:24 | NUR ---
SUMMARY NO ACUTE CHANGES T/O SHIFT. PT REQUESTED PAIN MEDS DURING SHIFT FOR THROAT AND MOUTH PAIN, NOT ABDMONAL PAIN. OFFERED THROAT SPRAY BUT PT DECLINED. PT HAD CHEST XR THIS SHIFT AND SPUTUM SAMPLE SENT PER ORDERS. IV FLUIDS AND ABX ADMINISTERED PER ORDERS. PLAN TO CHANGE OSTOMY APPLIANCE TO REINFORCE TEACHING TOMORROW PRIOR TO DC TO . CALL LIGHT IN REACH.
[2024-04-20 19:52] VITALS: BP 97/57
[2024-04-21 04:45] VITALS: BP 125/63
[2024-04-21] MEDS ORDERED: NS 50 ML IV ONE ×2 (05:04→11:36)
--- NOTE | 2024-04-21 05:55 | NUR ---
SHIFT SUMMARY POD 6 LAP SIGMOID COLECTOMY c NEW OSTOMY. NO ACUTE CHANGES OVERNIGHT. VSS. TOLERATING ORALS. IV FLUIDS/ABX INFUSING PER EMAR. PT INCONTINENT, PUREWICK IN PLACE, DRAINING YELLOW URINE. OSTOMY PRODUCING LIQUID BROWN STOOL. PT MEDICATED FOR PAIN PER EMAR, REPORTS TOLERABLE. AMBULATES c SBA, PT DID NOT AMBULATE OVERNIGHT. ANTICIPATED D/C c HH TODAY, FURTHER OSTOMY TEACHING REQUIRED. CALL LIGHT IN REACH, BED IN LOWEST POSITION, WILL REPORT TO DAY RN.
[2024-04-21 07:10] VITALS: BP 117/63
--- NOTE | 2024-04-21 10:29 | NUR ---
DR STERLING IN TO SEE PT.
[2024-04-21] MEDS ORDERED: ACET500 PO (11:08)
[2024-04-21] MEDS ORDERED: DOCU100 PO (11:08)
[2024-04-21] MEDS ORDERED: OXAYDO5 M1 PO (11:08)
[2024-04-21] MEDS ORDERED: GUAI600T33 PO (11:09)
[2024-04-21] MEDS ORDERED: MULTIVITAM12 MG/15 M PO (11:10)
[2024-04-21] MEDS ORDERED: MIRALAX17 GM PO (11:11)
[2024-04-21] MEDS ORDERED: PREG25 PO (11:12)
[2024-04-21] MEDS ORDERED: VISBIOME 112.51 EACH PO (11:13)
[2024-04-21] MEDS ORDERED: VITAMIN D5000 UNIT PO (11:14)
[2024-04-21] MEDS ORDERED: ZINC220 PO (11:14)
[2024-04-21 13:44] VITALS: BP 107/62
--- NOTE | 2024-04-21 13:44 | NUR ---
DISCHARGING REVIEWED DC INSTRUCTION W/PT. PT VERBALIZED UNDERSTANDING, DENIED HAVING ANY QUESTIONS. PROVIDED OSTOMY SUPPLIES TO PT. PACKED UP BELONGINGS. PT'S RIDE TO MEET PT AT FRONT ENTRANCE AT 1400.
[2024-04-21] MEDS ORDERED: AMOX-CLAV 875-1 EAC1 PO (13:53)
--- NOTE | 2024-04-21 14:00 | NUR ---
discharged AUGMENTIN ADDED TO DC MED REC PER DR STERLING'S TELEPHONE ORDER. CALLED AND SUBMITTED TO PHARMACIST AT [facility]. POWERGLIDE DC'D, PT TOLERATED WELL, CATHETER INTACT. PT LEFT UNIT IN WC W/POSSESSIONS AND DC PAPERWORK IN HAND TO MEET RIDE AT PATIENT ENTRANCE.
== END 2024-04-21 14:00 | disposition home health service (06) | DRG 329 ==
LOC: ER 13:52 → SURS 18:40 → ER 18:40 → ICUE 18:40 → SURS 04-16 17:05
PROVIDERS: Family Medicine; Hospitalist; Student in an Organized Health Care Education/Training Program; Surgery; ADMIT Family Medicine
PROC: 0D1M4Z4 Bypass Descending Colon to Cutaneous, Percutaneous Endoscopic Approach (ICD-10-PCS; 2024-04-15)
PROC: 0DNE4ZZ Release Large Intestine, Percutaneous Endoscopic Approach (ICD-10-PCS; 2024-04-15)
PROC: 8E0W4CZ Robotic Assisted Procedure of Trunk Region, Percutaneous Endoscopic Approach (ICD-10-PCS; 2024-04-15)
PROC: 0DTN4ZZ Resection of Sigmoid Colon, Percutaneous Endoscopic Approach (ICD-10-PCS; principal; 2024-04-15 17:30)
DX: K57.21 Diverticulitis of large intestine with perforation and abscess with bleeding (principal); K65.1 Peritoneal abscess; U07.1 COVID-19; N13.30 Unspecified hydronephrosis; E87.20 Acidosis, unspecified; M31.30 Wegener's granulomatosis without renal involvement; C78.01 Secondary malignant neoplasm of right lung; N32.89 Other specified disorders of bladder; Z66 Do not resuscitate; N32.0 Bladder-neck obstruction; N18.30 Chronic kidney disease, stage 3 unspecified; K12.1 Other forms of stomatitis; R32 Unspecified urinary incontinence; D64.9 Anemia, unspecified; R54 Age-related physical debility; K66.0 Peritoneal adhesions (postprocedural) (postinfection); J40 Bronchitis, not specified as acute or chronic; Z60.2 Problems related to living alone; Z85.51 Personal history of malignant neoplasm of bladder
CPT/HCPCS: 0241U; 36415; 71046; 74177; 80048; 80053; 81001; 83605; 83735; 84100; 84145; 85025; 85027; 86140; 87040; 87070; 87086; 87106; 87205; 87426; 87811; 88307; 94760; 94762; 96361; 96365-59; 96368; 96375; 97116; 97162; 97530; 99284-25; A9270; C1751; J0696; J1100; J2371; J2405; J2470; J2543; J2704; J3010; J7030; Q9967

== ENCOUNTER 2024-04-26 17:45 | Emergency (ER) | payer OTHER, MEDICARE ==
[~2024-04-26] VITALS: Ht 165.1 cm; Wt 54.4 kg
[~2024-04-26 17:45] MED LIST changes: +ACET500 PO; +AMOX-CLAV 875-1 EAC1 PO; +DOCU100 PO; +GUAI600T33 PO; +MIRALAX17 GM PO; +MULTIVITAM12 MG/15 M PO; +OXAYDO5 M1 PO; +PREG25 PO; +VISBIOME 112.51 EACH PO; +VITAMIN D5000 UNIT PO; +ZINC220 PO
[2024-04-26 21:30] VITALS: BP 137/69
== END 2024-04-26 22:00 | disposition home or self-care (01) ==
LOC: ER 17:45
DX: Z48.815 Encounter for surgical aftercare following surgery on the digestive system (principal); E03.9 Hypothyroidism, unspecified; E78.00 Pure hypercholesterolemia, unspecified; Z79.899 Other long term (current) drug therapy
CPT/HCPCS: 74177; 99284-25; Q9967

== ENCOUNTER → 2024-06-29 | Outpatient (CLI) | payer MEDICARE, OTHER ==
[2024-06-29 15:22] LABS: Source, Urine Voided
[2024-06-29 16:19] LABS: Appearance, Urine Cloudy (Clear); Bilirubin, Urine Neg (Neg); Blood, Urine 4+ (Neg); Color, Urine Yellow (P-Yellow); Glucose Qualitative, Urine Neg (Neg); Ketones, Urine Neg (Neg); Leukocyte Esterase, Urine 3+ (Neg); Nitrite, Urine Neg (Neg); Protein, Urine 2+ (Neg); Urobilinogen, Urine NORM (Normal)
[2024-06-29 16:45] LABS: Bacteria Many /hpf; Squamous Epithelial Cells Few /hpf (Few); White Blood Cells, Urine TNTC /hpf (0-5)
== END | disposition home or self-care (01) ==
LOC: LAB SHORT 15:18 → LAB 15:18
PROVIDERS: Hospitalist
DX: R31.9 Hematuria, unspecified (principal)
CPT/HCPCS: 81001; 87077; 87086; 87186

== ENCOUNTER 2024-08-19 12:58 | Day surgery (SDC) | payer MEDICARE, OTHER ==
[~2024-08-19] VITALS: Ht 164 cm; Wt 56.0 kg
[~2024-08-19 12:58] MED LIST changes: +Lactated Ringer's 1,000 ML IV SCH; +Prednisone10 MG PO
[2024-08-19 14:20] VITALS: BP 146/84
[2024-08-19] MEDS ORDERED: BACTRIM DS TAB1 EAC1 PO (14:29)
[2024-08-19] MEDS ORDERED: SULFAMETHOXAZO1 EAC1 PO (14:29)
--- NOTE | 2024-08-19 14:31 | NUR ---
History, Chart, Medications and Allergies reviewed before start of procedure. Patient up to Ambulate independently. Gait steady. Pre-Op teaching done. Pt verbalizes understanding. Patient confirms NPO status and agrees with scheduled surgery. Patient states colon prep results light yellow. Patient States Post-Procedure ride home has been arranged.
[2024-08-19] MEDS ORDERED: propofoL 50 ML IV ONE (14:47)
--- NOTE | 2024-08-19 15:15 | NUR ---
08/19/24 1515 Megan Bryant 1505- History, Chart, Medications and Allergies reviewed before start of procedure.MONITOR INTACT WITH CONTINUOUS PULSE OXIMETRY, CONTINUOUS END TITAL CO2, AND INTERMITTENT BLOOD PRESSURE.3-LEAD EKG REVIEWED WITH PHYSICIAN PRIOR TO START OF PROCEDURE.O2 VIA POM INTACT THROUGHOUT SEDATION/PROCEDURE.DR. HARTLEY PROVIDING ANESTHESIA-SEE ANESTHESIA RECORD.
[2024-08-19 15:45] VITALS: BP 136/79
--- NOTE | 2024-08-19 15:45 | NUR ---
PT TO DAY SURGERY STEP DOWN FROM COLONOSCOPY; BEDSIDE REPORT RECEIVED. PT IS AWAKE, ALERT AND ORIENTED; ABLE TO MOVE SELF IN BED. NO COMPLAINTS.
[2024-08-19 16:00] VITALS: BP 141/87
--- NOTE | 2024-08-19 16:03 | NUR ---
PT DECLINES PO FLUIDS. EXPERIENCING GAS PAINS Discharge instructions reviewed with patient. Patient verbalizes understanding. Copy given to patient to take home. Patient States Post-Procedure ride home has been arranged.
--- NOTE | 2024-08-19 16:15 | NUR ---
PT STATES THE GAS PAINS ARE BETTER AND IS READY TO GO HOME. Discharge instructions reviewed with patient. Patient verbalizes understanding. Copy given to patient to take home. Patient States Post-Procedure ride home has been arranged.
--- NOTE | 2024-08-19 16:21 | NUR ---
Patient up to Ambulate independently. Gait steady.
--- NOTE | 2024-08-19 16:30 | NUR ---
Discharged via wheelchair to private car for ride home.
[2024-08-19] MEDS ORDERED: Phenylephrine HCl 100 MCG/ML-NS 10MLSYR (1MG/10ML) IV ONE (17:28)
== END 2024-08-19 16:37 | disposition home or self-care (01) ==
LOC: ORSCMMR 12:58 → ORD 15:15 → ORSCMMR 16:37
PROVIDERS: Surgery
PROC: 0DBE8ZX Excision of Large Intestine, Via Natural or Artificial Opening Endoscopic, Diagnostic (ICD-10-PCS; principal; 2024-08-19 15:15)
PROC: 0DJD8ZZ Inspection of Lower Intestinal Tract, Via Natural or Artificial Opening Endoscopic (ICD-10-PCS; principal; 2024-08-19 15:15)
DX: Z12.11 Encounter for screening for malignant neoplasm of colon (principal); N18.9 Chronic kidney disease, unspecified; Z85.51 Personal history of malignant neoplasm of bladder; E78.5 Hyperlipidemia, unspecified; E03.9 Hypothyroidism, unspecified; Z79.899 Other long term (current) drug therapy
CPT/HCPCS: 88305; J2371; J2704; J7120

== ENCOUNTER → 2025-07-21 | Outpatient (CLI) | payer MEDICARE, OTHER ==
[~2025-07-21] MED LIST changes: +BACTRIM DS TAB1 EAC1 PO; -Lactated Ringer's 1,000 ML IV SCH; +SULFAMETHOXAZO1 EAC1 PO
== END ==
LOC: LAB 15:22 → LAB SHORT 15:22
DX: L08.9 Local infection of the skin and subcutaneous tissue, unspecified (principal)
CPT/HCPCS: 87070; 87075; 87077; 87147; 87186; 87205